=== PATIENT | female | born 1965 | race Caucasian/White ===

== ENCOUNTER 2017-10-22 11:19 | Inpatient (IN) | payer OTHER ==
[2017-10-22] VITALS (15 sets, daily range): BP systolic 106–187; BP diastolic 60–95; PULSE 81–109; RESP 18–20; TEMP 98.3–98.7; O2SAT 95–100
[~2017-10-22] VITALS: Ht 160 cm; Wt 75.1 kg
[~2017-10-22 11:19] MED LIST: ALEV220T14 PO; IBUP1TAB7 PO; ROBA500T PO
[2017-10-22] MEDS ORDERED: ESTR1TAB PO (11:31)
[2017-10-22] MEDS ORDERED: TUMS500C CHEW (11:31)
[2017-10-22] MEDS ORDERED: MAAL10003 CHEW (11:31)
--- NOTE | 2017-10-22 11:41 | PD ---
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 She presents for evaluation of chest pain. Symptoms started this morning at 8 AM spontaneously. She describes it as a burning/pressure pain in the substernal region which has been constant since 8 AM. She reports over the past several months she has been experiencing on a daily basis a substernal chest burning sensation which she attributes to heartburn. She has been using Maalox and Tums and this usually resolves her symptoms. Today was different, more intense, unrelieved with use of Maalox and Tums. Endorses some associated nausea. She denies shortness of breath, diaphoresis, cough or congestion, abdominal pain. She reports that she has been under a lot of stress in regards to her work she is currently quite anxious and tearful. She denies any known history of coronary artery disease. She reports that she had a cardiac catheterization 5 years ago in [place] and she was told that was normal. She reports use of E cigarettes but denies any other tobacco use. Denies any history of diabetes, hypertension, hyperlipidemia. She does not currently use any acid jimmy medications. No other complaints. PFSH Past Medical History Cardiac Catheterization: Yes Diminished Hearing: No GERD: Yes Medical other: Yes (barrets esophagus) ?: Not Menopausal: Yes Past Surgical History Hysterectomy: Yes Other Surgery: Yes (ENDOSCOPE) Social History Alcohol Use: Yes (occassional) Tobacco Use: No (ecig) Substance Use: No Allergies-Medications (Allergen,Severity, Reaction): Coded Allergies: *MDRO Multi-Drug Resistant Organism (Verified Adverse Reaction, Unknown, MRSA, 07/19/17) MRSA (buttock) - 12/08/16 Reported Meds & Prescriptions Reported Meds & Active Scripts Active Ibuprofen 800 Mg Tab 800 Mg PO Q6HR PRN Robaxin (Methocarbamol) 500 Mg Tab 500 Mg PO QID PRN Reported Tums (Calcium Carbonate (Antacid)) 500 Mg Chew 500 Mg CHEW PRN Maalox Advanced Maximum Strength (Calcium Carbonate-Simethicone) 1,000-60 Mg Chew 1 Tab CHEW PRN Estradiol 1 Mg Tab 1 Mg PO DAILY Aleve Arthritis (Naproxen Sodium) 220 Mg Tab 220 Mg PO BID Review of Systems Except as stated in HPI: all other systems reviewed are Neg Physical Exam Narrative GENERAL: Well-developed well-nourished female who is anxious and tearful. She is hypertensive. SKIN: Warm and dry. HEAD: Atraumatic. Normocephalic. EYES: Pupils equal and round. No scleral icterus. No injection or drainage. ENT: No nasal bleeding or discharge. Mucous membranes pink and moist. NECK: Trachea midline. No JVD. CARDIOVASCULAR: Regular rate and rhythm. No murmur appreciated. RESPIRATORY: No accessory muscle use. Clear to auscultation. Breath sounds equal bilaterally. GASTROINTESTINAL: Abdomen soft, non-tender, nondistended. Hepatic and splenic margins not palpable. MUSCULOSKELETAL: No obvious deformities. No clubbing. No cyanosis. No edema. NEUROLOGICAL: Awake and alert. No obvious cranial nerve deficits. Motor grossly within normal limits. Normal speech. PSYCHIATRIC: Appropriate mood and affect; insight and judgment normal. Data Data Last Documented VS Vital Signs Date Time Temp Pulse Resp B/P (MAP) Pulse Ox O2 Delivery O2 Flow Rate FiO2 10/22/17 12:30 100 18 132/74 (93) 98 Room Air 10/22/17 11:21 98.3 Orders Orders Electrocardiogram (10/22/17 ) Electrocardiogram (10/22/17 11:37) Basic Metabolic Panel (Bmp) (10/22/17 11:37) Ckmb (Isoenzyme) Profile (10/22/17 11:37) Complete Blood Count With Diff (10/22/17 11:37) Magnesium (Mg) (10/22/17 11:37) Prothrombin Time / Inr (Pt) (10/22/17 11:37) Act Partial Throm Time (Ptt) (10/22/17 11:37) Troponin I (10/22/17 11:37) Ecg Monitoring (10/22/17 11:37) Bilateral Bp Monitoring (10/22/17 11:37) Iv Access Insert/Monitor (10/22/17 11:37) Oximetry (10/22/17 11:37) Oxygen Administration (10/22/17 11:37) Aspirin Chew (Aspirin Chew) (10/22/17 11:45) Sodium Chloride 0.9% Flush (Ns Flush) (10/22/17 11:45) Nitroglycerin Sl (Nitrostat Sl) (10/22/17 11:45) Chest, Pa & Lat (10/22/17 11:37) Pantoprazole Inj (Protonix Inj) (10/22/17 11:45) Morphine Inj (Morphine Inj) (10/22/17 12:00) Sodium Chlorid 0.9% 500 Ml Inj (Ns 500 M (10/22/17 12:00) Admit Order (Ed Use Only) (10/22/17 13:30) Labs Laboratory Tests Test 10/22/17 11:42 White Blood Count 9.8 TH/MM3 Red Blood Count 4.66 MIL/MM3 Hemoglobin 14.6 GM/DL Hematocrit 43.2 % Mean Corpuscular Volume 92.7 FL Mean Corpuscular Hemoglobin 31.4 PG Mean Corpuscular Hemoglobin Concent 33.9 % Red Cell Distribution Width 14.1 % Platelet Count 246 TH/MM3 Mean Platelet Volume 8.0 FL Neutrophils (%) (Auto) 72.0 % Lymphocytes (%) (Auto) 21.4 % Monocytes (%) (Auto) 5.8 % Eosinophils (%) (Auto) 0.3 % Basophils (%) (Auto) 0.5 % Neutrophils # (Auto) 7.0 TH/MM3 Lymphocytes # (Auto) 2.1 TH/MM3 Monocytes # (Auto) 0.6 TH/MM3 Eosinophils # (Auto) 0.0 TH/MM3 Basophils # (Auto) 0.0 TH/MM3 CBC Comment DIFF FINAL Differential Comment Prothrombin Time 10.0 SEC Prothromb Time International Ratio 1.0 RATIO Activated Partial Thromboplast Time 27.4 SEC Blood Urea Nitrogen 20 MG/DL Creatinine 1.02 MG/DL Random Glucose 111 MG/DL Calcium Level 8.1 MG/DL Magnesium Level 2.0 MG/DL Sodium Level 140 MEQ/L Potassium Level 4.4 MEQ/L Chloride Level 107 MEQ/L Carbon Dioxide Level 23.8 MEQ/L Anion Gap 9 MEQ/L Estimat Glomerular Filtration Rate 57 ML/MIN Total Creatine Kinase 88 U/L Troponin I LESS THAN 0.02 NG/ML MDM Medical Decision Making Medical Screen Exam Complete: Yes Emergency Medical Condition: Yes Medical Record Reviewed: Yes Differential Diagnosis Unstable angina, acute coronary syndrome, GERD, aortic dissection, pulmonary embolism, pneumothorax, pericarditis, myocarditis Narrative Course The patient was placed on ECG monitoring pulse oximetry. A 12 EKG was obtained revealing sinus tachycardia with a rate of 104. Lab work, chest x-ray reassuring. The patient will be admitted to the chest pain center for serial cardiac enzymes and rule out purposes. Diagnosis Primary Impression: Chest pain Admitting Information Admitting Physician Requests: Observation Olu Albright October 22, 2017 11:41
[2017-10-22] MEDS ORDERED: ASPIRIN 81 MG CHEW TAB PO ONE (11:45)
[2017-10-22] MEDS ORDERED: SODIUM CHLORIDE 0.9% FLUSH 10 ML FLUSH IVF PRN (11:45)
[2017-10-22] MEDS ORDERED: PANTOPRAZOLE SODIUM 40 MG VIAL IVP ONE (11:45)
[2017-10-22] MEDS: NITROGLYCERIN 0.4 MG SL 25 TABS/BTL SL SCH ×3 (11:49→11:55)
[2017-10-22] MEDS ORDERED: MORPHINE SULFATE 4 MG/ML INJ IV PUSH ONE (12:00)
[2017-10-22] MEDS ORDERED: SODIUM CHLORID 0.9% 500 ML INJ 500 ML IV ONE (12:00)
[2017-10-22 12:20] LABS: BASOPHIL % 0.5 % (0.0-2.0); EOSINOPHIL % 0.3 % (0.0-4.0); HEMATOCRIT 43.2 % (35.0-46.0); HEMOGLOBIN 14.6 GM/DL (11.6-15.3); LYMPH % 21.4 % (9.0-44.0); LYMPHOCYTE # 2.1 TH/MM3 (1.0-4.8); MEAN CELL VOLUME 92.7 FL (80.0-100.0); MEAN CORPUSCULAR HEMOGLOBIN 31.4 PG (27.0-34.0); MEAN CORPUSCULAR HGB CONC 33.9 % (32.0-36.0); MONO % 5.8 % (0.0-8.0); MONOCYTE # 0.6 TH/MM3 (0-0.9); PLATELET COUNT 246 TH/MM3 (150-450); RED BLOOD COUNT 4.66 MIL/MM3 (4.00-5.30); RED CELL DISTRIBUTION WIDTH 14.1 % (11.6-17.2); WHITE BLOOD COUNT 9.8 TH/MM3 (4.0-11.0)
--- NOTE | 2017-10-22 12:31 | RADRPT ---
EXAM DATE/TIME: 10/22/2017 12:21 [facility] COMPARISON: No previous studies available for comparison. INDICATIONS : Chest pain. MEDICAL HISTORY : None. SURGICAL HISTORY : Hysterectomy. ENCOUNTER: Initial ACUITY: 1 day PAIN SCORE: 10/10 LOCATION: Bilateral chest FINDINGS: PA and lateral views of the chest demonstrate the lungs to be symmetrically aerated without evidence of mass, infiltrate or effusion. The cardiomediastinal contours are unremarkable. Osseous structure s are intact. CONCLUSION: Normal examination for a patient of this age. Paolo Epstein MD on October 22, 2017 at 12:30 Board Certified Radiologist. This report was verified electronically.
[2017-10-22 12:58] LABS: BLOOD UREA NITROGEN 20 MG/DL (7-18); CALCIUM 8.1 MG/DL (8.5-10.1); CREATININE 1.02 MG/DL (0.50-1.00); GLOMERULAR FILTRATION RATE 57 ML/MIN (>89); GLUCOSE,RANDOM 111 MG/DL (74-106); SODIUM (NA) 140 MEQ/L (136-145)
[2017-10-22 12:59] LABS: BICARBONATE 23.8 MEQ/L (21.0-32.0); CHLORIDE 107 MEQ/L (98-107); TROPONIN I LESS THAN 0.02 NG/ML (0.02-0.05)
[2017-10-22] MEDS ORDERED: ACETAMINOPHEN 500 MG CPLT PO PRN (14:30)
--- NOTE | 2017-10-22 15:00 | HHI.HP ---
HPI Primary Care Physician Jeff Price DO Chief Complaint Chest pain History of Present Illness 52-year-old female with history of Laughlin's esophagus presents emergency room for further evaluation of chest pain. Onset 8 AM. Location substernal. Characterized as burning, tightness, and pressure. No radiation of pain. Severe in severity. No radiation of pain. Associated symptoms of nausea and "it hurt to talk." Denies vomiting, dyspnea, or diaphoresis. Took 1/2 bottle of Maalox and 15 Tums without relief, therefore came to ER for further evaluation. Duration constant. Current pain "moderate." Relieving factors included morphine. Reports long standing history of daily ingestion despite multiple medications including Maalox, Tagamet, Zantac, and Tums throughout the day for "at least 2 years." Last EGD "many years ago." Reports cardiac catheterization 5 years ago reported to be completed normal, completed due to same presenting symptoms. Moved from [place] 3 years ago to [place]. Since this time, she has not seen a with GI specialist. (Jenifer Crowell) Review of Systems General: No fatigue,weakness, fever, chills, or recent illness. Has been her general state of health, which includes multiple antacids and aqwy-eys-jetyyqq GERD medications, multiple times throughout the day. HEENT: No MATHIAS, no dysphasia. Reports barium swallow completed many years ago. CV: Continues to have chest discomfort as stated above. RESP: No SOB, cough, or wheeze GI: Nausea resolved. No vomiting or bowel changes. No dysphasia. Occasionally induces vomiting due to feeling food in stuck in mid esophageus area. No sour taste or acid reflex noted in back of throat. "I have the acid reflex without the burning in back of throat." No change in appetite. No unintentional weight loss. No history of peptic ulcers : No dysuria, urgency, frequency EXT: No lower leg edema MS: No discomfort or change in ROM NEURO: No change in memory, dizziness, difficulty with balance, LOC, motor/ sensory deficits PSYCH: Reports "high stress with job and family." Has not mentioned this to her family physician. Reports anxiety, never treated for anxiety stating " I don't want to get hooked on medications." No depression. SKIN: No rashes, no concerning lesions (Jenifer Crowell) Past Family Social History Allergies: Coded Allergies: *MDRO Multi-Drug Resistant Organism (Verified Adverse Reaction, Unknown, MRSA, 07/19/17) MRSA (buttock) - 12/08/16 Past Medical History GERD, Laughlin's esophagus Past Surgical History Hysterectomy Reported Medications Reported Meds & Active Scripts Active Ibuprofen 800 Mg Tab 800 Mg PO Q6HR PRN Robaxin (Methocarbamol) 500 Mg Tab 500 Mg PO QID PRN Reported Tums (Calcium Carbonate (Antacid)) 500 Mg Chew 500 Mg CHEW PRN Maalox Advanced Maximum Strength (Calcium Carbonate-Simethicone) 1,000-60 Mg Chew 1 Tab CHEW PRN Estradiol 1 Mg Tab 1 Mg PO DAILY Aleve Arthritis (Naproxen Sodium) 220 Mg Tab 220 Mg PO BID Active Ordered Medications Current Medications Medications (Trade) Dose Ordered Sig/Melissa Route Start Time Stop Time Status Last Admin (NS Flush) 2 ml UNSCH PRN IVF 10/22/17 11:45 (NS Flush) 2 ml BID IV FLUSH 10/22/17 21:00 (Tylenol) 500 mg Q4H PRN PO 10/22/17 14:30 (Zofran Inj) 4 mg Q6H PRN IV PUSH 10/22/17 14:30 (Nitrostat Sl) 0.4 mg Q5M PRN SL 10/22/17 14:30 (Aspirin) 325 mg DAILY PO 10/23/17 09:00 Family History Noncontributory for early onset cardiovascular disease Social History No known coronary artery disease, hypertension, diabetes, or hyperlipidemia. Former smoker quitting 3 years ago. Currently smoking E cigarettes. Denies any alcohol or illegal drug use. 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 Past cardiac testing Cardiac catheterization 5 years ago while living in [place]. Reported to be completely normal. (Jenifer Crowell) Physical Exam Vital Signs Vital Signs Date Time Temp Pulse Resp B/P (MAP) Pulse Ox O2 Delivery O2 Flow Rate FiO2 10/22/17 14:49 10/22/17 14:21 98 21 10/22/17 14:17 97 18 123/64 (83) 98 Room Air 10/22/17 12:30 100 18 132/74 (93) 98 Room Air 10/22/17 11:57 109 20 106/60 (75) 98 Room Air 10/22/17 11:55 97 18 106/72 (83) 98 Room Air 10/22/17 11:55 18 10/22/17 11:53 103 18 164/93 (116) 98 Room Air 10/22/17 11:52 99 Room Air 10/22/17 11:52 99 Room Air 10/22/17 11:29 107 18 187/95 (125) 100 Room Air 10/22/17 11:25 94 20 100 Room Air 10/22/17 11:21 98.3 98 20 161/90 (113) 100 Physical Exam GENERAL: Alert WN, WD, NAD, pleasant, female who appears mildly anxious HEAD: NC, AT EYES: Sclera clear, conjunctiva without injection, pupils equal and round ENT: Mucous membranes pink and moist NECK: Supple, no masses, trachea midline CV: RRR, without murmur, rub, gallop, no JVD, S1-S2 no S3-S4. Diffuse chest wall tenderness with palpation. RESP: Clear lungs throughout bilateral, no crackles, wheeze, rhonchi, symmetrical chest rise, nonlabored, able to speak in full sentences ABD: Soft, NT, ND, no masses, positive bowel tones EXT: Pulses +2x4, no dependent edema MS: Normal tone x4 extremities, nontender, no obvious deformities, full range of motion NEURO: CN II through CN XII grossly intact, motor strength 5/5, gait WNL PSYCH: A+O x3, flat affect, appropriate speech, mood, insight and judgment SKIN: Normal turgor, normal texture Laboratory Laboratory Tests Test 10/22/17 11:42 White Blood Count 9.8 Red Blood Count 4.66 Hemoglobin 14.6 Hematocrit 43.2 Mean Corpuscular Volume 92.7 Mean Corpuscular Hemoglobin 31.4 Mean Corpuscular Hemoglobin Concent 33.9 Red Cell Distribution Width 14.1 Platelet Count 246 Mean Platelet Volume 8.0 Neutrophils (%) (Auto) 72.0 Lymphocytes (%) (Auto) 21.4 Monocytes (%) (Auto) 5.8 Eosinophils (%) (Auto) 0.3 Basophils (%) (Auto) 0.5 Neutrophils # (Auto) 7.0 Lymphocytes # (Auto) 2.1 Monocytes # (Auto) 0.6 Eosinophils # (Auto) 0.0 Basophils # (Auto) 0.0 CBC Comment DIFF FINAL Differential Comment Prothrombin Time 10.0 Prothromb Time International Ratio 1.0 Activated Partial Thromboplast Time 27.4 Blood Urea Nitrogen 20 Creatinine 1.02 Random Glucose 111 Calcium Level 8.1 Magnesium Level 2.0 Sodium Level 140 Potassium Level 4.4 Chloride Level 107 Carbon Dioxide Level 23.8 Anion Gap 9 Estimat Glomerular Filtration Rate 57 Total Creatine Kinase 88 Troponin I LESS THAN 0.02 (Jenifer Crowell) Result Diagram: 10/22/17 1142 10/22/17 1142 Imaging Last 48 hours Impressions Chest X-Ray 10/22/17 1137 Signed Impressions: Service Date/Time: Sunday, October 22, 2017 12:21 - CONCLUSION: Normal examination for a patient of this age. Paolo Epstein MD Course EKG Normal sinus rhythm, no ST-T segment changes (Jenifer Crowell) Caprini VTE Risk Assessment Caprini VTE Risk Assessment: No/Low Risk (score <= 1) Caprini Risk Assessment Model Point Value = 1 Point Value = 2 Point Value = 3 Point Value = 5 Age 41-60 Minor surgery BMI > 25 kg/m2 Swollen legs Varicose veins or History of unexplained or recurrent spontaneous Oral contraceptives or hormone replacement Sepsis (< 1 month) Serious lung disease, including pneumonia (< 1 month) Abnormal pulmonary function Acute myocardial infarction Congestive heart failure (< 1 month) History of inflammatory bowel disease Medical patient at bed rest Age 61-74 Arthroscopic surgery Major open surgery (> 45 min) Laparoscopic surgery (> 45 min) Malignancy Confined to bed (> 72 hours) Immobilizing plaster cast Central venous access Age >= 75 History of VTE Family history of VTE Factor V Leiden Prothrombin [id number] Lupus anticoagulant Anticardiolipin antibodies Elevated serum homocysteine Heparin-induced thrombocytopenia Other congenital or acquired thrombophilia Stroke (< 1 month) Elective arthroplasty Hip, pelvis, or leg fracture Acute spinal cord injury (< 1 month) Prophylaxis Regimen Total Risk Factor Score Risk Level Prophylaxis Regimen 0-1 Low Early ambulation 2 Moderate Order ONE of the following: *Sequential Compression Device (SCD) *Heparin 5000 units SQ BID 3-4 Higher Order ONE of the following medications: *Heparin 5000 units SQ TID *Enoxaparin/Lovenox 40 mg SQ daily (WT < 150 kg, CrCl > 30 mL/min) *Enoxaparin/Lovenox 30 mg SQ daily (WT < 150 kg, CrCl > 10-29 mL/min) *Enoxaparin/Lovenox 30 mg SQ BID (WT < 150 kg, CrCl > 30 mL/min) AND/OR *Sequential Compression Device (SCD) 5 or more Highest Order ONE of the following medications: *Heparin 5000 units SQ TID (Preferred with Epidurals) *Enoxaparin/Lovenox 40 mg SQ daily (WT < 150 kg, CrCl > 30 mL/min) *Enoxaparin/Lovenox 30 mg SQ daily (WT < 150 kg, CrCl > 10-29 mL/min) *Enoxaparin/Lovenox 30 mg SQ BID (WT < 150 kg, CrCl > 30 mL/min) AND *Sequential Compression Device (SCD) (Jenifer Crowell) Assessment and Plan Assessment and Plan #1 Chest pain-chest pain center. Begin ACS protocol including 3 sets of EKGs and cardiac enzymes. Monitor on telemetry. Will be seen and evaluated by Dr. Jason Guerra. Discomfort suggested a long-standing GI history, however due to risk factors it ruling out cardiac events will be amended at this time. Due to completely normal coronary arteries via cardiac catheterization 5 years ago, discussed possible no further cardiac testing will required. This will be determined after evaluation by bait digger. #2 History of GERD-Protonix 40 mg daily, after ACS ruled out will consult GI #3 Situational stress-discussed in length importance of managing multiple stressors within her life. Education provided on effects of long standing stress on her body. Verbalized understanding and ready to make lifestyle changes in her life to reduce stress. 1700 Notified by RN second troponin 0.97. Requested RN to notify GI as now patient will be admitted to full inpatient status with a cardiology consult. Begin Nitro paste 1" Q6H and metoprolol 25mg BID. (Jenifer Crowell) Assessment and Plan Seen and examined No evidenceof cardiac ischemia. Will consult GI (Jason Guerra MD) Jenifer Crowell October 22, 2017 15:00 Jason Guerra MD October 22, 2017 16:05
[2017-10-22] MEDS ORDERED: LIDOCAINE VISCOUS 2% SOLN 15 ML UDC SWISH-SWAL ONE (15:30)
[2017-10-22] MEDS ORDERED: ALUMINUM/MAGNESIUM/SIMETH 30 ML CUP PO ONE (15:30)
[2017-10-22] MEDS ORDERED: HYDROmorphone HCL PF 2 MG/ML VIAL IV PUSH PRN ×2 (16:15→16:30)
[2017-10-22 16:53] LABS: TROPONIN I 0.97 NG/ML (0.02-0.05)
--- NOTE | 2017-10-22 16:56 | PD.CONS ---
HPI History of Present Illness This is a 52 year old female with hx Dominguez's and GERD who presented to ER with c/o heartburn. She has had heartburn daily for years but pain worsened today. Tums and Maalox usually help but did not today. SHe had nitro in the ER and it did not help. Admits some nausea. Pain was originally substernal, now is in epigastric area. Denies vomiting, blood in stool black tarry stool, weight loss. SHe takes Aleve occasionally. SHe had EGD 8y ago in [place], revealed Dominguez's, H pylori. SHe did treat the h pylori. Never had colonoscopy. SHe cites external stress. (Melonie Shanks) PFSH Past Medical History dominguez's GERD chronic back pain Past Surgical History c section x 2 hysterectomy back surgery appendectomy cholecystectomy (Melonie Shanks) Coded Allergies: *MDRO Multi-Drug Resistant Organism (Verified Adverse Reaction, Unknown, MRSA, 07/19/17) MRSA (buttock) - 12/08/16 Family History colon ca Social History no etoh e - cigarettes no illicit drug use (Melonie Shanks) Review of Systems Constitutional: DENIES: Fever, Weight loss Endocrine: DENIES: Polydipsia Eyes: DENIES: Blurred vision Ears, nose, mouth, throat: DENIES: Hearing loss Respiratory: DENIES: Cough Cardiovascular: DENIES: Chest pain Gastrointestinal: COMPLAINS OF: Abdominal pain, Nausea, DENIES: Black stools, Bloody stools, Vomiting, Hematemesis Genitourinary: DENIES: Hematuria Musculoskeletal: DENIES: Joint pain Integumentary: DENIES: Abnormal pigmentation Hematologic/lymphatic: DENIES: Bruising Immunologic/allergic: DENIES: Eczema Neurologic: DENIES: Abnormal gait Psychiatric: DENIES: Confusion (Melonie Shanks) GI Exam Vitals I&O Vital Signs Date Time Temp Pulse Resp B/P (MAP) Pulse Ox O2 Delivery O2 Flow Rate FiO2 10/22/17 15:44 98.7 85 18 128/80 (96) 97 10/22/17 14:49 10/22/17 14:21 98 21 10/22/17 14:17 97 18 123/64 (83) 98 Room Air 10/22/17 12:30 100 18 132/74 (93) 98 Room Air 10/22/17 11:57 109 20 106/60 (75) 98 Room Air 10/22/17 11:55 97 18 106/72 (83) 98 Room Air 10/22/17 11:55 18 10/22/17 11:53 103 18 164/93 (116) 98 Room Air 10/22/17 11:52 99 Room Air 10/22/17 11:52 99 Room Air 10/22/17 11:29 107 18 187/95 (125) 100 Room Air 10/22/17 11:25 94 20 100 Room Air 10/22/17 11:21 98.3 98 20 161/90 (113) 100 I/O 10/21/17 10/21/17 10/21/17 10/22/17 10/22/17 10/22/17 07:00 15:00 23:00 07:00 15:00 23:00 Intake Total 500 ml Balance 500 ml Intake IV Total 500 ml Imaging Last Impressions Chest X-Ray 10/22/17 1137 Signed Impressions: Service Date/Time: Sunday, October 22, 2017 12:21 - CONCLUSION: Normal examination for a patient of this age. Paolo Epstein MD Laboratory Test 10/22/17 11:42 10/22/17 15:15 White Blood Count 9.8 TH/MM3 Red Blood Count 4.66 MIL/MM3 Hemoglobin 14.6 GM/DL Hematocrit 43.2 % Mean Corpuscular Volume 92.7 FL Mean Corpuscular Hemoglobin 31.4 PG Mean Corpuscular Hemoglobin Concent 33.9 % Red Cell Distribution Width 14.1 % Platelet Count 246 TH/MM3 Mean Platelet Volume 8.0 FL Neutrophils (%) (Auto) 72.0 % Lymphocytes (%) (Auto) 21.4 % Monocytes (%) (Auto) 5.8 % Eosinophils (%) (Auto) 0.3 % Basophils (%) (Auto) 0.5 % Neutrophils # (Auto) 7.0 TH/MM3 Lymphocytes # (Auto) 2.1 TH/MM3 Monocytes # (Auto) 0.6 TH/MM3 Eosinophils # (Auto) 0.0 TH/MM3 Basophils # (Auto) 0.0 TH/MM3 CBC Comment DIFF FINAL Differential Comment Prothrombin Time 10.0 SEC Prothromb Time International Ratio 1.0 RATIO Activated Partial Thromboplast Time 27.4 SEC Blood Urea Nitrogen 20 MG/DL Creatinine 1.02 MG/DL Random Glucose 111 MG/DL Calcium Level 8.1 MG/DL Magnesium Level 2.0 MG/DL Sodium Level 140 MEQ/L Potassium Level 4.4 MEQ/L Chloride Level 107 MEQ/L Carbon Dioxide Level 23.8 MEQ/L Anion Gap 9 MEQ/L Estimat Glomerular Filtration Rate 57 ML/MIN Total Creatine Kinase 88 U/L Troponin I LESS THAN 0.02 NG/ML Physical Examination HEENT: PERRL; normocephalic; atraumatic; no jaundice. CHEST: Chest is clear to auscultation and percussion. CARDIAC: Regular rate and rhythm with no murmur gallop or rubs. ABDOMEN: Soft, nondistended,epigastric TTP; no hepatosplenomegaly; bowel sounds are present in all four quadrants. EXTREMITIES: No clubbing, cyanosis, or edema. SKIN: Normal; no rash; no jaundice. MEDICAL REVIEW SPECIALIST: anxious (Melonie Shanks) Assessment and Plan Plan ASSESSMENT - epigastric pain - gastritis vs esophagitis vs ulcer vs cardiac. cardiology following, recent troponin 0.97. pt has hx Dominguez's, GERD. cites chronic heartburn with recent worsening not relieved by usual meds last EGD 8 y ago found dominguez's. never had colonoscopy PLAN - EGD +/- colonoscopy when cleared by cardiology - BID protonix - DEANDRA - trial carafate - await cardiology f/u - further recs to follow pt seen by myself and Dr Echols and this note is on his behalf (Melonie Shanks) Physician Comments Seen and examined with CHARGING MANIPULATOR, chronic gi symptoms. GI vergara once cleared by cardiology. Continue protonix. Will follow, thank you (Zandra Echols MD) Melonie Shanks October 22, 2017 16:56 Zandra Echols MD October 22, 2017 17:19
[2017-10-22] MEDS: NITROGLYCERIN 0.4 MG SL 25 TABS/BTL SL PRN ×3 (17:02→17:16)
[2017-10-22] MEDS: ONDANSETRON HCL 4 MG/2 ML VIAL IV PUSH PRN (17:10)
[2017-10-22] MEDS: SUCRALFATE 1 GM/10 ML CUP PO SCH ×2 (17:46→22:32)
[2017-10-22] MEDS: NITROGLYCERIN 2% OINT 1 GM PACKET TOPICAL SCH (17:46)
--- NOTE | 2017-10-22 18:21 | PD ---
Data Data Last Documented VS Vital Signs Date Time Temp Pulse Resp B/P (MAP) Pulse Ox O2 Delivery O2 Flow Rate FiO2 10/22/17 12:30 100 18 132/74 (93) 98 Room Air 10/22/17 11:21 98.3 Orders Orders Electrocardiogram (10/22/17 ) Electrocardiogram (10/22/17 11:37) Basic Metabolic Panel (Bmp) (10/22/17 11:37) Ckmb (Isoenzyme) Profile (10/22/17 11:37) Complete Blood Count With Diff (10/22/17 11:37) Magnesium (Mg) (10/22/17 11:37) Prothrombin Time / Inr (Pt) (10/22/17 11:37) Act Partial Throm Time (Ptt) (10/22/17 11:37) Troponin I (10/22/17 11:37) Ecg Monitoring (10/22/17 11:37) Bilateral Bp Monitoring (10/22/17 11:37) Iv Access Insert/Monitor (10/22/17 11:37) Oximetry (10/22/17 11:37) Oxygen Administration (10/22/17 11:37) Aspirin Chew (Aspirin Chew) (10/22/17 11:45) Sodium Chloride 0.9% Flush (Ns Flush) (10/22/17 11:45) Nitroglycerin Sl (Nitrostat Sl) (10/22/17 11:45) Chest, Pa & Lat (10/22/17 11:37) Pantoprazole Inj (Protonix Inj) (10/22/17 11:45) Morphine Inj (Morphine Inj) (10/22/17 12:00) Sodium Chlorid 0.9% 500 Ml Inj (Ns 500 M (10/22/17 12:00) Admit Order (Ed Use Only) (10/22/17 13:30) Labs Laboratory Tests Test 10/22/17 11:42 White Blood Count 9.8 TH/MM3 Red Blood Count 4.66 MIL/MM3 Hemoglobin 14.6 GM/DL Hematocrit 43.2 % Mean Corpuscular Volume 92.7 FL Mean Corpuscular Hemoglobin 31.4 PG Mean Corpuscular Hemoglobin Concent 33.9 % Red Cell Distribution Width 14.1 % Platelet Count 246 TH/MM3 Mean Platelet Volume 8.0 FL Neutrophils (%) (Auto) 72.0 % Lymphocytes (%) (Auto) 21.4 % Monocytes (%) (Auto) 5.8 % Eosinophils (%) (Auto) 0.3 % Basophils (%) (Auto) 0.5 % Neutrophils # (Auto) 7.0 TH/MM3 Lymphocytes # (Auto) 2.1 TH/MM3 Monocytes # (Auto) 0.6 TH/MM3 Eosinophils # (Auto) 0.0 TH/MM3 Basophils # (Auto) 0.0 TH/MM3 CBC Comment DIFF FINAL Differential Comment Prothrombin Time 10.0 SEC Prothromb Time International Ratio 1.0 RATIO Activated Partial Thromboplast Time 27.4 SEC Blood Urea Nitrogen 20 MG/DL Creatinine 1.02 MG/DL Random Glucose 111 MG/DL Calcium Level 8.1 MG/DL Magnesium Level 2.0 MG/DL Sodium Level 140 MEQ/L Potassium Level 4.4 MEQ/L Chloride Level 107 MEQ/L Carbon Dioxide Level 23.8 MEQ/L Anion Gap 9 MEQ/L Estimat Glomerular Filtration Rate 57 ML/MIN Total Creatine Kinase 88 U/L Troponin I LESS THAN 0.02 NG/ML MDM Supervised Visit with AKBAR: Yes Narrative Course The history, exam, and medical decision-making in the associated midlevel provider note were completed with my assistance. I reviewed and agree with the findings presented. I attest that I had a [id number] encounter with the patient on the same day, and personally performed and documented my assessment and findings in the medical record. *My assessment and Findings: This is a 52-year-old female who presents to the emergency department with epigastric and substernal chest pain has been going on for months but did not resolve today after taking Tums and Maalox and was more intense. EKG is nonischemic. Patient will be observed in the chest pain center for serial cardiac enzymes. If reassuring patient can follow-up with outpatient gastroenterology. Diagnosis Primary Impression: Chest pain Ching Scott MD October 22, 2017 18:21
[2017-10-22] MEDS: HYDROmorphone HCL PF 2 MG/ML VIAL IV PUSH PRN ×2 (19:12→23:43)
[2017-10-22 19:25] LABS: TROPONIN I 1.67 NG/ML (0.02-0.05)
[2017-10-22] MEDS ORDERED: HEPARIN SODIUM - IV 10,000 UNITS/10 ML VIAL IV PUSH ONE (19:45)
[2017-10-22] MEDS ORDERED: HEPARIN-D5W 25,000 U/250 ML 250 ML IV PRN (19:45)
[2017-10-22 20:36] LABS: HEMATOCRIT 38.2 % (35.0-46.0); HEMOGLOBIN 12.8 GM/DL (11.6-15.3); MEAN CELL VOLUME 91.8 FL (80.0-100.0); MEAN CORPUSCULAR HEMOGLOBIN 30.7 PG (27.0-34.0); MEAN CORPUSCULAR HGB CONC 33.5 % (32.0-36.0); MEAN PLATELET VOLUME 8.3 FL (7.0-11.0); PLATELET COUNT 211 TH/MM3 (150-450); RED BLOOD COUNT 4.17 MIL/MM3 (4.00-5.30); RED CELL DISTRIBUTION WIDTH 14.1 % (11.6-17.2); WHITE BLOOD COUNT 12.9 TH/MM3 (4.0-11.0)
[2017-10-22] MEDS: SODIUM CHLORIDE 0.9% FLUSH 10 ML FLUSH IV FLUSH SCH (21:00)
[2017-10-22] MEDS: PANTOPRAZOLE SOD 40 MG DELAYED RELEASE TAB PO SCH (22:33)
[2017-10-22] MEDS: METOPROLOL TARTRATE 25 MG TAB PO SCH (22:33)
[2017-10-22] MEDS ORDERED: ALPRAZolam 0.5 MG TAB PO ONE (22:45)
[2017-10-22] MEDS: ATORVASTATIN 80 MG TAB PO SCH (22:49)
[2017-10-23] VITALS (21 sets, daily range): BP systolic 92–129; BP diastolic 56–75; PULSE 69–92; RESP 16–18; TEMP 97.7–99.8; O2SAT 96–98
[2017-10-23] MEDS ORDERED: HEPARIN SODIUM - IV 10,000 UNITS/10 ML VIAL IV PUSH PRN ×2 (01:45)
[2017-10-23] MEDS: HYDROmorphone HCL PF 2 MG/ML VIAL IV PUSH PRN ×5 (04:00→21:44)
[2017-10-23] MEDS ORDERED: ALUMINUM/MAGNESIUM/SIMETH 30 ML CUP PO ONE (05:30)
[2017-10-23] MEDS ORDERED: ALPRAZolam 0.5 MG TAB PO ONE (05:30)
[2017-10-23] MEDS: NITROGLYCERIN 2% OINT 1 GM PACKET TOPICAL SCH ×4 (05:43→17:40)
--- NOTE | 2017-10-23 07:51 | HHI.PR ---
Subjective Remarks F/u NSTEMI/ CP/ abd pain Patient complains of chest pain since current medications does not help however she is on Nitropaste and also Dilaudid by IV. 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 Patient with elevated troponins, non-ST elevation [place] plan for cardiac cath today by Dr. Antonio Objective Vitals Vital Signs Date Time Temp Pulse Resp B/P (MAP) Pulse Ox O2 Delivery O2 Flow Rate FiO2 10/23/17 06:00 78 10/23/17 05:00 76 10/23/17 04:45 116/75 (89) 10/23/17 04:00 75 10/23/17 03:00 69 10/23/17 02:10 74 10/23/17 02:10 98.6 74 16 92/63 (73) 97 10/22/17 23:15 98.5 86 18 106/67 (80) 95 10/22/17 22:03 97 10/22/17 20:34 98.6 92 18 122/67 (85) 95 10/22/17 17:14 98.7 92 18 145/88 (107) 97 10/22/17 16:15 81 10/22/17 15:44 98.7 85 18 128/80 (96) 97 10/22/17 14:49 10/22/17 14:21 98 21 10/22/17 14:17 97 18 123/64 (83) 98 Room Air 10/22/17 12:30 100 18 132/74 (93) 98 Room Air 10/22/17 11:57 109 20 106/60 (75) 98 Room Air 10/22/17 11:55 97 18 106/72 (83) 98 Room Air 10/22/17 11:55 18 10/22/17 11:53 103 18 164/93 (116) 98 Room Air 10/22/17 11:52 99 Room Air 10/22/17 11:52 99 Room Air 10/22/17 11:29 107 18 187/95 (125) 100 Room Air 10/22/17 11:25 94 20 100 Room Air 10/22/17 11:21 98.3 98 20 161/90 (113) 100 I/O 5/7/18 5/7/18 10/22/17 10/23/17 10/23/17 10/23/17 07:00 15:00 23:00 07:00 15:00 23:00 Intake Total 500 ml 240 ml Balance 500 ml 240 ml Intake Oral 240 ml IV Total 500 ml # Bowel Movements 1 Result Diagram: 10/22/17200510/22/17 1142 Imaging Last Impressions Chest X-Ray 10/22/17 1137 Signed Impressions: Service Date/Time: Sunday, October 22, 2017 12:21 - CONCLUSION: Normal examination for a patient of this age. Paolo Epstein MD Objective Remarks GENERAL: Veruy pleasant female, in nad. SKIN: Warm and dry. HEAD: Atraumatic. Normocephalic. EYES: Pupils equal and round. No scleral icterus. No injection or drainage. ENT: No nasal bleeding or discharge. Mucous membranes pink and moist. NECK: Trachea midline. No JVD. CARDIOVASCULAR: Regular rate and rhythm. RESPIRATORY: No accessory muscle use. Clear to auscultation. Breath sounds equal bilaterally. GASTROINTESTINAL: Abdomen soft, non-tender, nondistended. Hepatic and splenic margins not palpable. MUSCULOSKELETAL: Extremities without clubbing, cyanosis, or edema. No obvious deformities. NEUROLOGICAL: Awake and alert. No obvious cranial nerve deficits. Motor grossly within normal limits. Five out of 5 muscle strength in the arms and legs. Normal speech. PSYCHIATRIC: Appropriate mood and affect; insight and judgment normal. A/P Assessment and Plan NSTEMI Elevated troponin trending up EKGs reviewed. Monitor on telemetry. Nitro paste 1" Q6H and metoprolol 25mg BID. Heparin drip Dilaudid IV prn for chest pain Patient with long-standing GI history, however due to risk factors it ruling out cardiac events will be amended at this time. Due to completely normal coronary arteries via cardiac catheterization 5 years ago, discussed possible no further cardiac testing will required. Patient with elevated trops trending up plan for cardiac cath by Dr Antonio History of GERD-Protonix 40 mg daily, consult GI. Patient says she has a h/o Barretts esophagus. Situational stress- advised managing multiple stressors within her life. Education provided on effects of long standing stress on her body. Verbalized understanding and ready to make lifestyle changes in her life to reduce stress. DVT ppx scd, teds, heparin Plan for cardiac cath Funmilayo Aponte MD October 23, 2017 07:51
[2017-10-23] MEDS: SUCRALFATE 1 GM/10 ML CUP PO SCH ×4 (08:42→20:40)
[2017-10-23] MEDS: METOPROLOL TARTRATE 25 MG TAB PO SCH ×2 (08:42→20:40)
[2017-10-23] MEDS: ATORVASTATIN 80 MG TAB PO SCH (08:43)
[2017-10-23] MEDS: ONDANSETRON HCL 4 MG/2 ML VIAL IV PUSH PRN ×2 (08:43→18:55)
[2017-10-23] MEDS: SODIUM CHLORIDE 0.9% FLUSH 10 ML FLUSH IV FLUSH SCH ×2 (08:43→20:40)
[2017-10-23] MEDS: PANTOPRAZOLE SOD 40 MG DELAYED RELEASE TAB PO SCH ×2 (08:43→20:40)
[2017-10-23] MEDS ORDERED: PANTOPRAZOLE SOD 40 MG DELAYED RELEASE TAB PO SCH (09:00)
[2017-10-23] MEDS ORDERED: ASPIRIN 325 MG TAB PO SCH (09:00)
--- NOTE | 2017-10-23 09:35 | MB ---
cc: Fernie Antonio MD DATE: 10/22/2017 HISTORY OF PRESENT ILLNESS: This is a 71-year-old white female with a history of Laughlin's esophagus, presented with substernal chest burning and tightness which started this morning. She has had frequent chest discomfort over the last 2 years and she had EGD 8 years ago, in [place], which showed Laughlin's esophagus. She does not see a GI doctor. Her primary care physician is Dr. Jeff Price. She has had nausea, but no shortness of breath, vomiting, diaphoresis. She has not had any peripheral edema, dizziness or lightheadedness. PAST MEDICAL HISTORY: Positive gastroesophageal reflux disease, Laughlin's esophagus, hysterectomy. No history of hypertension, diabetes mellitus, coronary artery disease or CVA. MEDICATIONS: Tums, Maalox, Estradiol, Aleve, ibuprofen, Robaxin p.r.n. ALLERGIES: NO KNOWN MEDICAL ALLERGIES. SOCIAL HISTORY: The patient does not drink alcohol. She quit smoking cigarettes 3 years ago. She smokes e-cigarettes. 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 She is . FAMILY HISTORY: Negative for heart disease. REVIEW OF SYSTEMS: Otherwise negative. PHYSICAL EXAMINATION: VITAL SIGNS: Blood pressure 145/88, pulse 92 and regular. HEENT: Negative. NECK: 2+ upstrokes, no bruits. LUNGS: Clear. HEART: Regular, with no murmur, gallop or rub. ABDOMEN: Soft. No bruits. EXTREMITIES: Without edema, 2+ distal pulses. NEUROLOGIC: Grossly nonfocal. ECHOCARDIOGRAM: Was reviewed and showed a normal sinus rhythm with normal axis and intervals, right axis, nonspecific T-wave changes. LABORATORY DATA: Hemoglobin 14.6. Potassium 4.4, creatinine 1.0. CK 88, 122 and 116. Troponins less than 0.02, 0.97 and 1.67. DIAGNOSES: 1. Non-ST elevation myocardial infarction. 2. Laughlin's esophagus. 3. Gastroesophageal reflux disease. 4. Smoking. DISPOSITION: Ms. Bennett was rule in for myocardial infarction by enzymes. I recommend to continue IV heparin, aspirin, nitroglycerin and beta jimmy. We will start statin as well. She will be scheduled for cardiac catheterization and coronary intervention if necessary tomorrow. She understands the risks and benefits, and wishes to proceed. MD KARLA Christensen , 08:13 PM , 09:15 PM ELVA
--- NOTE | 2017-10-23 10:52 | EKG ---
Date Performed: 10/23/2017 Time Performed: 04:41:18 PTAGE: 52 years EKG: Sinus rhythm Rightward axis Lateral T wave changes are nonspecific Borderline ECG PREVIOUS TRACING : 10/22/2017 17.08 DOCTOR: Korey Candelaria Interpretating Date/Time 10/23/2017 10:49:18
--- NOTE | 2017-10-23 11:31 | EKG ---
Date Performed: 10/22/2017 Time Performed: 17:08:25 PTAGE: 52 years EKG: Sinus rhythm NORMAL ECG PREVIOUS TRACING : 10/22/2017 15.05 DOCTOR: Korey Candelaria Interpretating Date/Time 10/23/2017 11:29:48
[2017-10-23] MEDS: NITROGLYCERIN 0.4 MG SL 25 TABS/BTL SL PRN ×2 (11:33→11:43)
--- NOTE | 2017-10-23 11:38 | EKG ---
Date Performed: 10/22/2017 Time Performed: 15:05:41 PTAGE: 52 years EKG: Sinus rhythm NONSPECIFIC T-WAVE ABNORMALITY BORDERLINE ECG NO PREVIOUS TRACING DOCTOR: Korey Candelaria Interpretating Date/Time 10/23/2017 11:36:52
--- NOTE | 2017-10-23 14:08 | HHI.GIFU ---
Subjective Remarks Pt complaining of bad chest pain States the Dilaudid only lasts two hours and would like a pill in between Dilaudid dosages Planned for cardiac cath today (Tamera Salazar) Objective Vitals I&O Vital Signs Date Time Temp Pulse Resp B/P (MAP) Pulse Ox O2 Delivery O2 Flow Rate FiO2 10/23/17 13:27 86 10/23/17 13:17 18 10/23/17 12:00 79 10/23/17 11:59 18 10/23/17 11:35 98.9 75 18 111/72 (85) 98 10/23/17 11:35 75 10/23/17 10:00 81 10/23/17 09:58 92 10/23/17 08:03 83 10/23/17 08:03 97.7 83 18 111/69 (83) 96 10/23/17 06:00 78 10/23/17 05:00 76 10/23/17 04:45 116/75 (89) 10/23/17 04:00 75 10/23/17 03:00 69 10/23/17 02:10 74 10/23/17 02:10 98.6 74 16 92/63 (73) 97 10/22/17 23:15 98.5 86 18 106/67 (80) 95 10/22/17 22:03 97 10/22/17 20:34 98.6 92 18 122/67 (85) 95 10/22/17 17:14 98.7 92 18 145/88 (107) 97 10/22/17 16:15 81 10/22/17 15:44 98.7 85 18 128/80 (96) 97 10/22/17 14:49 10/22/17 14:21 98 21 10/22/17 14:17 97 18 123/64 (83) 98 Room Air I/O 10/22/17 10/22/17 10/22/17 10/23/17 10/23/17 10/23/17 07:00 15:00 23:00 07:00 15:00 23:00 Intake Total 500 ml 240 ml Balance 500 ml 240 ml Intake Oral 240 ml IV Total 500 ml # Bowel Movements 1 Laboratory Laboratory Tests Test 10/22/17 15:15 10/22/17 17:50 10/22/17 20:06 10/23/17 04:35 Total Creatine Kinase 122 116 Creatine Kinase MB 7.9 9.6 Troponin I 0.97 1.67 White Blood Count 12.9 Red Blood Count 4.17 Hemoglobin 12.8 Hematocrit 38.2 Mean Corpuscular Volume 91.8 Mean Corpuscular Hemoglobin 30.7 Mean Corpuscular Hemoglobin Concent 33.5 Red Cell Distribution Width 14.1 Platelet Count 211 Mean Platelet Volume 8.3 Prothrombin Time 10.0 Prothromb Time International Ratio 1.0 Activated Partial Thromboplast Time 22.6 35.8 Test 10/23/17 12:42 Activated Partial Thromboplast Time 58.3 Imaging Last Impressions Chest X-Ray 10/22/17 1137 Signed Impressions: Service Date/Time: Sunday, October 22, 2017 12:21 - CONCLUSION: Normal examination for a patient of this age. Paolo Epstein MD Physical Exam HEENT: Normocephalic; atraumatic CHEST: Even/unlabored CARDIAC: RRR ABDOMEN: Soft, nondistended, nontender; bowel sounds active EXTREMITIES: No clubbing, cyanosis, or edema. SKIN: Normal; no rash; no jaundice. MANAGER TERMINAL: No focal deficits; alert and oriented times three. (Tamera Salazar) Assessment and Plan Plan ASSESSMENT - Epigastric/chest pain- History of Laughlin's esophagus and GERD with complaints of chronic heartburn recently not controlled with medication. Last EGD 8 years ago. - Chest pain with elevated troponin- cardiology following and planning on cardiac cath with possible PCI today. Pt remains on heparin gtt PLAN - Carafate - Protonix - At this time, pts main issue is cardiac (troponin trending up) - Our service will sign off, please reconsult when pt is stable for EGD pending she still has pain Pt has been seen and examined by myself and Dr. Echols and this note is written on his behalf (Tamera Salazar) Physician Comments Seen and examined with THOM, undergoing cardiac vergara for acute SD. GI vergara on hold for now. Ideally would wait a few months prior to any elective gi procedures. PPI and carafate. GI will sign off. FU with GI as outpt. Thank you (Zandra Echols MD) Tamera Salazar October 23, 2017 14:08 Zandra Echols MD October 23, 2017 15:38
--- NOTE | 2017-10-23 14:17 | EKG ---
Date Performed: 10/22/2017 Time Performed: 11:34:00 PTAGE: 52 years EKG: SINUS TACHYCARDIA WITH SHORT NE INTERVAL ABNORMAL RHYTHM ECG INTERPRETATION BASED ON A DEFA ULT AGE OF 39 YEARS NO PREVIOUS TRACING DOCTOR: Korey Candelaria Interpretating Date/Time 10/23/2017 14:15:20
[2017-10-23] MEDS ORDERED: MIDAZOLAM HCL 5 MG/5 ML VIAL ONE (15:07)
[2017-10-23] MEDS ORDERED: HEPARIN-NS/PF FLUSH BAG 2,000 ML IV FLUSH ONE (15:07)
[2017-10-23] MEDS ORDERED: MIDAZOLAM HCL 2 MG/2 ML VIAL ONE ×2 (15:55→16:27)
[2017-10-23] MEDS ORDERED: HEPARIN SODIUM - IV 10,000 UNITS/10 ML VIAL ONE (16:05)
[2017-10-23] MEDS ORDERED: LIDOCAINE HCL 1% PF 30 ML VIAL ONE (16:37)
[2017-10-23] MEDS ORDERED: TICAGRELOR 90 MG TAB PO ONE (16:50)
[2017-10-23] MEDS ORDERED: SODIUM CHLOR 0.9% 1000 ML INJ 1,000 ML IV SCH (17:02)
--- NOTE | 2017-10-23 17:09 | CATHPROC ---
wutabout HIS Report Study Information Study Number Admission Scheduled Start Study Start [id number] Oct 22 2017 6:23PM 10/23/2017 Oct 23 2017 3:08PM [place] Service Cardiac Catheterization Admit Source Facility Department Emergency department [facility] - Cable Engineer Physician and Clinical Staff Initial Fernie Knapp Unindentured Apprentice Can Mcknight,ROSALVA Other Wilder RN, Dmitriy Recorder Azalea Akins,WRAPPER SELECTOR TECH2 Scrub Jossie Ordoñez,PROFESSIONAL WRESTLER TECH2 Procedures Performed Procedure Location (Site) Vessel Name Angiogram LV LV Ventricle Coronary Angiograms LCA Left Coronary Coronary Angiograms RCA Right Coronary Drug Eluting Inflatio LAD Prox Left Coronary PTCA LAD Prox Left Coronary Wire insertion Fem Art (right) Femoral Art Equipment Time Pre Kindergarten Teacher Description Size Mfg Part Number Used/Scraped WIRE, BALANCE MIDDLEWEIGHT [id number] 16:11 S[employer] 190CM Used 190CM *[id number] TRANSDUCER, TRUWAVE [id number] 15:52 STACY COLON * Used W/STOCKCOCK *[id number] [id number] *[id number] [id number] *[id number] *[id number] 16:42 DAIG/ST. JAMAAL MEDICAL ANGIOSEAL, FR6 VIP FR 6 Used *[id number] 15:52 Lexity INDUSTRIES PACK, CCL CUSTOM * Used *[id number] 15:52 Lexity PACER PEN, SKIN DUAL W/ RULER * Used *[id number] 16:11 MEDTRONIC BALLOON, 2.0 X 10MM EUPHORA 10MM Used *[id number] BALLOON, 2.75 X 8MM NC [id number] 16:30 MEDTRONIC 8MM Used EUPHORA *[id number] 15:46 MEDTRONIC JL 4.0 DXTERITY CATHETER FR 5 Used *[id number] 16:22 MEDTRONIC STENT, 2.5 15MM CIRILO 2.5 15MM Used *[id number] 16:16 RNDOMN MEDICAL 30 ANSELMO INDEFLATOR Used *[id number] 16:07 RNDOMN MEDICAL SHEATH, FR6.5 PRELUDE 11CM FR 6.5 038ACT Used *7910153 [id number] 15:52 eParachute WIRE, 3MMJ .035 180CM 180CM Used *[id number] PROBE COVER, STERILE [id number] 15:52 MICROTEK MEDICAL * Used ULTRASOUND W/ GEL *[id number] 15:52 NAMIC MANIFOLD, 4 PORT * Used *9365083 [id number] 15:52 NAMIC TUBING, HIGH PRESSURE 48" 48" Used *[id number] 15:52 NYCOMED OMNIPAQUE, 350 MG, 150ML 150ML [id number] Used 15:55 NYCOMED OMNIPAQUE, 350 MG, 50ML 50ML [id number] Used [id number] 15:52 [facility],WARM AIR CCL * Used *[id number] 15:52 TERUMO MEDICAL SHEATH, FR5 TERUMO (10CM) FR 5 Used *[id number] Equipment Model, Serial, Lot Number and Expiration Data Description Model Number Serial Number Lot Number Expiration Date ANGIOSEAL, FR6 VIP [id number] 04-17-2018 BALLOON, 2.0 X 10MM EUPHORA [id number] 05-17-2019 JL 4.0 DXTERITY CATHETER [id number] 03-12-2020 STENT, 2.5 15MM CIRILO [id number] 11-30-2018 History: Allergies Allergy Reaction *MDRO Multi-Drug Resistant MRSA Organism History: Risk Factors Family History of Hypertension Dyslipidemia Previous [place] Previous Heart Failure Premature CAD No No No No No Prior Valve Prior PCI Prior CABG Surgery No No No Cerebrovascular Peripheral Artery Chronic Lung On Dialysis Diabetes Disease Disease Disease No No No No No History: Symptoms/Diagnosis Selection Items Chest pain History: Stress Tests Stress or Imaging Studies Performed No History: Other Disease Selection Items Gerd History: Other Current Smoker Method Quit Packs a Day Years Used Pack Years No Cigarettes 3 Years Ago 1 27 27 Labs Hgb (g/dl) Hct (%) RBC (MIL/MM3) Platelets (thousands) 11.60-17.00 35.00-51.00 4.00-5.90 150.00-450.00 12.8 38.2 4.1 211 Glucose (mg/dl) BUN (mg/dl) Creatinine (mg/dl) BUN:Creatinine (1:x) 74.00-106.00 7.00-18.00 0.50-1.30 10.00-20.00 111 20 1.0 20 Na (meq/l) K (meq/l) Cl (meq/l) CO2 (mmol/L) Ca (mg/dl) 136.00-145.00 3.50-5.10 98.00-107.00 21.00-32.00 8.50-10.10 140 4.4 107 23.8 8.1 PT (sec) PTT (sec) INR (PTT:PT) 9.80-11.60 24.30-30.10 0.90-1.10 10 35.8 1 Troponin I (ng/ml) CPK (u/l) CPK-MB (ng/ML) 0.02-0.05 26.00-308.00 0.50-3.60 1.67 116 9.6 Medication Medication Total Dose (Bolus/Oral) Medication Total Dosage/Unit 1% XYLOCAINE 20 mL FENTANYL 225 mcg HEPARIN 6000 units NTG (IC) 300 mcg VERSED 8 mg Medications (Bolus/Oral) Medication Time Given Dosage/Unit Administered By Reason VERSED 10/23/2017 3:23:16 PM 2 mg Roxanna, Can 2 mg VERSED given in lab by Can Mcknight RN in Left Forearm via Peripheral IV. Ordered by Gisella Antonio. FENTANYL 10/23/2017 3:24:21 PM 50 mcg Roxanna, Can 50 mcg FENTANYL given in lab by Can Mcknight RN in Left Forearm via Peripheral IV. Ordered by Fernie Baldwin. VERSED 10/23/2017 3:28:34 PM 1 mg Roxanna, Can 1 mg VERSED given in lab by Can Mcknight RN in Left Forearm via Peripheral IV. Ordered by Gisella Antonio. FENTANYL 10/23/2017 3:30:40 PM 25 mcg Roxanna, Can 25 mcg FENTANYL given in lab by Can Mcknight RN in Left Forearm via Peripheral IV. Ordered by Fernie Baldwin. VERSED 10/23/2017 3:34:26 PM 1 mg Roxanna, Can 1 mg VERSED given in lab by Can Mcknight RN in Left Forearm via Peripheral IV. Ordered by Gisella Antonio. VERSED 10/23/2017 3:43:08 PM 1 mg Roxanna, Can 1 mg VERSED given in lab by Can Mcknight RN in Left Forearm via Peripheral IV. Ordered by Gisella Antonio. 1% XYLOCAINE 10/23/2017 3:49:21 PM 20 mL Fernie Antonio 20 mL 1% XYLOCAINE given in lab by Fernie Antonio in Right Groin via Subcutaneous. Ordered by Fernie Baldwin. FENTANYL 10/23/2017 3:54:17 PM 25 mcg Roxanna, Can 25 mcg FENTANYL given in lab by Can Mcknight RN in Left Forearm via Peripheral IV. Ordered by Fernie Baldwin. VERSED 10/23/2017 3:58:11 PM 1 mg Roxanna, Can 1 mg VERSED given in lab by Can Mcknight RN in Left Forearm via Peripheral IV. Ordered by Gisella Antonio. FENTANYL 10/23/2017 4:05:21 PM 50 mcg Roxanna, Can 50 mcg FENTANYL given in lab by Can Mcknight RN in Left Forearm via Peripheral IV. Ordered by Fernie Baldwin. HEPARIN 10/23/2017 4:11:40 PM 4000 units Roxanna, Can 4000 units HEPARIN given in lab by Can Mcknight RN in Left Forearm via Peripheral IV. Ordered by Fernie Ferguson. HEPARIN 10/23/2017 4:15:02 PM 1000 units Roxanna, Can 1000 units HEPARIN given in lab by Can Mcknight RN in Left Forearm via Peripheral IV. Ordered by Fernie Ferguson. VERSED 10/23/2017 4:16:08 PM 1 mg Roxanna, Can 1 mg VERSED given in lab by Can Mcknight RN in Left Forearm via Peripheral IV. Ordered by Gisella Antonio. NTG (IC) 10/23/2017 4:19:23 PM 100 mcg Fernie Antonio 100 mcg NTG (IC) given in lab by Fernie Antonio via Intra-coronary to LCA. Ordered by Sree Antonio HEPARIN 10/23/2017 4:26:31 PM 1000 units Roxanna, Can 1000 units HEPARIN given in lab by Can Mcknight RN in Left Forearm via Peripheral IV. Ordered by Fernie Ferguson. NTG (IC) 10/23/2017 4:27:19 PM 200 mcg Fernie Antonio 200 mcg NTG (IC) given in lab by Fernie Antonio via Intra-coronary to LAD. Ordered by Sree Antonio FENTANYL 10/23/2017 4:27:55 PM 25 mcg Roxanna, Can 25 mcg FENTANYL given in lab by Can Mcknight RN in Left Forearm via Peripheral IV. Ordered by Fernie Baldwin. VERSED 10/23/2017 4:29:33 PM 1 mg Roxanna, Can 1 mg VERSED given in lab by Can Mcknight RN in Left Forearm via Peripheral IV. Ordered by Gisella Antonio. FENTANYL 10/23/2017 4:33:35 PM 25 mcg Roxanna, Can 25 mcg FENTANYL given in lab by Can Mcknight RN in Left Forearm via Peripheral IV. Ordered by Fernie Baldwin. FENTANYL 10/23/2017 4:45:54 PM 25 mcg Roxanna, Can 25 mcg FENTANYL given in lab by Can Mcknight RN in Left Forearm via Peripheral IV. Ordered by Fernie Baldwin. Medication (Drip) Medication Time Given Dosage/Unit Concentration/Unit Diluent (ml) Solution IV Solutions 10/23/2017 3:16:19 PM 0 mL (IV) 500 NaCl .9 Patient arrived on IV Solutions in Left Forearm via Peripheral IV. Pump/Drip Flow = 20 ml/hr using Na Cl .9. Initial Case Assessment Cardiovascular HR Rhythm NIBP Chest Pain 87 sr 109/62 8 Circulatory - Right Pulses Posterior Tibial Femoral 2 2 Scale (0,1,2,3,4,d) Circulatory - Left Pulses Posterior Tibial Femoral 2 Scale (0,1,2,3,4,d) Neurological State Oriented to time-place- Alert Moves all extremities person Respiration - General Respiration Rate SpO2 (%) (B/min) 14 99 Final Case Assessment Cardiovascular HR Rhythm NIBP Chest Pain 82 sr 128/87 9 Circulatory - Right Pulses Posterior Tibial Femoral 2 2 Scale (0,1,2,3,4,d) Circulatory - Left Pulses Posterior Tibial Femoral 2 Scale (0,1,2,3,4,d) Neurological State Oriented to time-place- Alert Moves all extremities person Respiration - General Respiration Rate SpO2 (%) (B/min) 20 97 Chronological Log Time Study Chronological Log 15:08:19 Patient arrived via Bed. 15:08:20 Patient Name, D.O.B, / Armband Verified By R.N. 15:08:21 Consent signed by the physician and the patient and verified by the Cable Engineer staff. 15:08: Pre-op and post- op instructions given; patient acknowledges understanding of instructions. 15:08:23 Verbal Stimulation=2 Physical Stimulation=2 Airway=2 Respiration=2 TOTAL=8. (0=absent, 1=li mited, 2=present) 15:08:24 Presedation assessment performed by Cable Engineer RN. 15:08: Patient has been NPO for More than 6Hrs. 15:08: Skin Breakdown-none Vitals capture started with the following parameters, Patient=Adult, Interval=5 min, Initial Pr hjcxni=877 mmHg, 15:11:54 Deflation Rate=5 mmHg, Cuff placed on Left Arm 15:12:32 HR=85 bpm, IVEP=747/62 mmhg, SpO2=99.0 %, Resp=12 B/min, Pain=0, Chidi=10, Triana=2 15:16:16 Reyna Prominences Protected 15:16:18 A # 22 IV was noted in the Forearm (left). Grade = patent 15:16:19 Patient arrived on IV Solutions in Left Forearm via Peripheral IV. Pump/Drip Flow = 20 ml/h r using NaCl .9. 15:16:20 History and physical on the chart or being dictated. Assessment: Initial Case, HR=87 BPM, Rhythm=sr, QDOL=003/62 mmhg, Chest Pain=8 Right Pulses: Post Tib=2, Femoral=2 15:16:21 Left Pulses: Cassius Ped=2, Femoral=2 Neurological: State=Alert, Ox3, GRANDA Respiration: Resp=14 B/min, SpO2=99 % 15:16:23 Reference ECG taken 15:17:25 HR=84 bpm, MEMX=059/64 mmhg, SpO2=98.0 %, Resp=14 B/min 15:20:32 Bilateral groins prepped with 2% chlorhexidine, and draped after a 3 minute waiting time. 15:22:22 HR=83 bpm, ZDRE=735/74 mmhg, SpO2=99.0 %, Resp=13 B/min 15:23:16 2 mg VERSED given in lab by Can Mcknight RN in Left Forearm via Peripheral IV. Ordered by Fernie Antonio. 15:23:41 MD arrived. 15:24:21 50 mcg FENTANYL given in lab by Can Mcknight RN in Left Forearm via Peripheral IV. Ordered by Fernie Antonio. 15:27:27 HR=89 bpm, IWSB=412/71 mmhg, SpO2=98.0 %, Resp=15 B/min 15:28:34 1 mg VERSED given in lab by Can Mcknight RN in Left Forearm via Peripheral IV. Ordered by Fernie Antonio. 15:30:40 25 mcg FENTANYL given in lab by Can Mcknight RN in Left Forearm via Peripheral IV. Ordered by Fernie Antonio. 15:32:28 HR=85 bpm, WYGB=556/60 mmhg, SpO2=98.0 %, Resp=16 B/min 15:34:26 1 mg VERSED given in lab by Can Mcknight RN in Left Forearm via Peripheral IV. Ordered by Fernie Antonio. 15:37:28 HR=85 bpm, NIBP=97/55 mmhg, SpO2=99.0 %, Resp=16 B/min 15:42:29 HR=85 bpm, KKJW=975/54 mmhg, BaX8=391.0 %, Resp=17 B/min 15:43:08 1 mg VERSED given in lab by Can Mcknight RN in Left Forearm via Peripheral IV. Ordered by Fernie Antonio. 15:47:28 HR=86 bpm, NIBP=97/61 mmhg, ViI7=346.0 %, Resp=21 B/min Time Out. Correct patient, correct procedure, correct physician, power injector loaded with con trast with surgical team 15:48:12 present. Time Out Concurred by MD and individual staff in procedure. 15:49:20 Case Start 15:49:21 20 mL 1% XYLOCAINE given in lab by Fernie Antonio in Right Groin via Subcutaneous. Ordered by Fernie Antonio. 15:52:16 Access site was Right Femoral Artery. 15:52:22 A SHEATH, FR5 TERUMO (10CM) FR 5 was advanced into the Fem Art (right) using the Percut[place]o us technique. 15:52:27 HR=82 bpm, BFRJ=903/68 mmhg, GyW7=094.0 %, Resp=13 B/min 15:54:17 25 mcg FENTANYL given in lab by Can Mcknight RN in Left Forearm via Peripheral IV. Ordered by Fernie Antonio. A PIGTAIL ANG. INFINITI CATHETER FR 5 was advanced over a wire. OMNIPAQUE, 350 MG, 50ML 50ML wa s used for 15:54:27 injections. 15:57:05 The LV was injected at 10 cc/sec for a total of 30. OMNIPAQUE, 350 MG, 50ML 50ML used. 15:57:30 HR=87 bpm, UYRE=285/63 mmhg, LqY5=920.0 %, Resp=13 B/min 15:57:38 Pressure channel 1 zeroed. Recorded Pressure: LV, HR=91, Condition=Condition 1 15:57:50 (Left Ventricle) LV 99/6/11 Recorded Pressure: LV, Ao, HR=88, Condition=Condition 1 15:57:58 (Left Ventricle) LV 97/9/13, (Aorta) Ao 92/57/74 15:58:11 1 mg VERSED given in lab by Can Mcknight RN in Left Forearm via Peripheral IV. Ordered by Fernie Antonio. 15:59:07 Catheter was removed A JL 4.0 DXTERITY CATHETER FR 5 was advanced over a wire. OMNIPAQUE, 350 MG, 150ML 150ML was us ed for 15:59:07 injections. 15:59:55 The LCA was injected and visualized at various angles. OMNIPAQUE, 350 MG, 150ML 150ML used . 16:02:35 HR=87 bpm, SWOD=638/63 mmhg, DeF6=273.0 %, Resp=15 B/min 16:03:48 Catheter was removed A AR MOD INFINITI CATHETER FR 5 was advanced over a wire. OMNIPAQUE, 350 MG, 150ML 150ML was us ed for 16:03:49 injections. 16:04:49 The RCA was injected and visualized at various angles. OMNIPAQUE, 350 MG, 150ML 150ML used . 16:05:21 50 mcg FENTANYL given in lab by Can Mcknight RN in Left Forearm via Peripheral IV. Ordered by Fernie Antonio. 16:06:53 Catheter was removed A SHEATH, FR6.5 PRELUDE 11CM FR 6.5 was exchanged in the Fem Art (right). This was necessary in order to 16:07:08 accomodate a larger catheter. 16:07:26 HR=88 bpm, QFWH=425/72 mmhg, FeX6=651.0 %, Resp=14 B/min 16:09:03 Activated Clotting Time Drawn A XB 3.0 GUIDE CATHETER FR 6 was advanced over a wire. OMNIPAQUE, 350 MG, 150ML 150ML was used for 16:09:53 injections. 16:10:42 The LCA was injected and visualized at various angles. OMNIPAQUE, 350 MG, 150ML 150ML used . 16:11:40 4000 units HEPARIN given in lab by Can Mcknight RN in Left Forearm via Peripheral IV. Orde red by Fernie Antonio. 16:12:03 A WIRE, BALANCE MIDDLEWEIGHT 190CM 190CM was inserted via Fem Art (right). 16:12:31 HR=85 bpm, CPJN=030/64 mmhg, GaZ3=277.0 %, Resp=15 B/min 16:13:30 Interventional wire has crossed the lesion A BALLOON, 2.0 X 10MM EUPHORA 10MM was inserted over WIRE, BALANCE MIDDLEWEIGHT 190CM 190CM via the 16:14:04 LAD Prox. 16:15:02 1000 units HEPARIN given in lab by Can Mcknight RN in Left Forearm via Peripheral IV. Orde red by Fernie Antonio. A BALLOON, 2.0 X 10MM EUPHORA 10MM over a WIRE, BALANCE MIDDLEWEIGHT 190CM 190CM in the LAD Pro x was 16:15:25 inflated using a 30 ANSELMO INDEFLATOR at 16 anselmo for 22 sec. 16:16:08 1 mg VERSED given in lab by Can Mcknight RN in Left Forearm via Peripheral IV. Ordered by Fernie Antonio. 16:17:33 Balloon Removed. 16:17:34 HR=86 bpm, FJPS=404/56 mmhg, OwB5=229.0 %, Resp=16 B/min 16:19:23 100 mcg NTG (IC) given in lab by Fernie Antonio via Intra-coronary to LCA. Ordered by Fernie Bravo. 16:20:33 Activated Clotting Time Drawn 16:22:29 HR=89 bpm, UWKZ=907/67 mmhg, VwR2=014.0 %, Resp=14 B/min A STENT, 2.5 15MM CIRILO 2.5 15MM was advanced through a XB 3.0 GUIDE CATHETER FR 6 over a WIRE, BALANCE 16:22:56 MIDDLEWEIGHT 190CM 190CM. 16:23:33 ACT (Normal Range 90-180) = 226 A STENT, 2.5 15MM CIRILO 2.5 15MM was deployed using a 30 ANSELMO INDEFLATOR at 12 atmospheres for 52 seconds in 16:25:41 the LAD Prox. 16:26:31 1000 units HEPARIN given in lab by Can Mcknight RN in Left Forearm via Peripheral IV. Orde red by Fernie Antonio. 16:26:50 Delivery device removed 16:27:19 200 mcg NTG (IC) given in lab by Fernie Antonio via Intra-coronary to LAD. Ordered by Fernie Bravo. 16:27:30 HR=87 bpm, SZNO=683/82 mmhg, SpO2=99.0 %, Resp=15 B/min 16:27:55 25 mcg FENTANYL given in lab by Can Mcknight RN in Left Forearm via Peripheral IV. Ordered by Fernie Antonio. 16:29:33 1 mg VERSED given in lab by Can Mcknight RN in Left Forearm via Peripheral IV. Ordered by Fernie Antonio. A BALLOON, 2.75 X 8MM NC EUPHORA 8MM was inserted over WIRE, BALANCE MIDDLEWEIGHT 190CM 190CM v ia the 16:31:10 LAD Prox. A BALLOON, 2.75 X 8MM NC EUPHORA 8MM over a WIRE, 3MMJ .035 180CM 180CM in the LAD Prox was inf lated using 16:32:32 a 30 ANSELMO INDEFLATOR at 16 anselmo for 22 sec. 16:32:41 HR=84 bpm, GIAI=860/71 mmhg, SpO2=99.0 %, Resp=13 B/min 16:33:35 25 mcg FENTANYL given in lab by Can Mcknight RN in Left Forearm via Peripheral IV. Ordered by Fernie Antonio. A BALLOON, 2.75 X 8MM NC EUPHORA 8MM over a WIRE, 3MMJ .035 180CM 180CM in the LAD Prox was inf lated using 16:33:51 a 30 ANSELMO INDEFLATOR at 24 anselmo for 25 sec. 16:35:58 Balloon Removed. 16:36:05 Case End 16:37:32 HR=86 bpm, BSFZ=398/66 mmhg, SpO2=98.0 %, Resp=13 B/min 16:37:53 An injection in the Fem Art (right) was made through the SHEATH, FR6.5 PRELUDE 11CM FR 6.5. 16:38:42 Activated Clotting Time Drawn 16:42:31 HR=88 bpm, BPAT=653/66 mmhg, SpO2=98.0 %, Resp=14 B/min 16:42:49 Access site prepped with betadine for closure device deployment. 16:45:46 ANGIOSEAL, FR6 VIP FR 6 placement in the Fem Art (right) 16:45:54 25 mcg FENTANYL given in lab by Can Mcknight RN in Left Forearm via Peripheral IV. Ordered by Fernie Antonio. 16:46:46 ACT (Normal Range 90-180) = 357 16:47:32 HR=88 bpm, FJIN=164/66 mmhg, SpO2=95 %, Resp=12 B/min 16:48:11 Sterile dressing applied to site 16:48:12 No case complications noted. 16:48:13 Cine recording checked. 16:52:33 HR=78 bpm, RLJG=859/79 mmhg, Resp=8 B/min 16:57:52 Bedside Report will be given. 16:57:53 Implantable Device card placed in patient's chart. Assessment: Final Case, HR=82 BPM, Rhythm=sr, NBTY=054/87 mmhg, Chest Pain=9 Right Pulses: Post Tib=2, Femoral=2 16:57:55 Left Pulses: Cassius Ped=2, Femoral=2 Neurological: State=Alert, Ox3, GRANDA Respiration: Resp=20 B/min, SpO2=97 % 16:58:13 HR=82 bpm, OFBN=155/87 mmhg, SpO2=97 %, Resp=16 B/min 17:02:47 Vitals capture stopped. 17:04:50 Patient moved to bed 17:05:00 Patient transported to [facility] End Study - Contrast Media Used In Study Contrast Total Opened (mL) Total Used (mL) Total Wasted (mL) Omnipaque 260 260 0 End Study - Maximum Contrast Load Max Contrast Load (mL) 312.5 End Study - Radiation Exposure Fluoro Time (minutes) 5.9 End Study - Sheaths Sheaths Pulled By Sheath Hold Time (min) Jossie Ordoñez End Study - Patient Disposition Complications Transferred To Interventional Outcome No Telemetry Bed successful
--- NOTE | 2017-10-23 17:13 | MR ---
cc: Fernie Antonio MD, Ot[place]ar MD DATE: 10/23/2017 INDICATION: Non-ST elevation myocardial infarction, Class IV angina. PROCEDURE PERFORMED: 1. Retrograde left heart catheterization with left ventriculography and selective coronary angiography. 2. Angioplasty and stenting of the proximal left anterior descending artery. 3. Moderate sedation. ACCESS SITE: Right femoral artery. EQUIPMENT USED: 5 Ethiopian pigtail catheter 4. 5 Ethiopian JL4 and AR modified coronary catheters. XB 3.0 guide, BMW wire, 2.0 x 10 mm balloon for predilatation, 2.5 x 15 mm Gilbert drug-eluting NG stent at 12 atmospheres, distal portion of the stent was postdilated using 2.75 x 8 mm noncompliant balloon at 24 atmospheres. MEDICATIONS: Versed IV, fentanyl IV, heparin IV, nitroglycerin IC, Brilinta 180 mg p.o. CONTRAST: Omnipaque 260 mL COMPLICATIONS: None. ESTIMATED BLOOD LOSS: Less than 10 mL METHOD OF HEMOSTASIS: Angio-Seal closure. RESULTS: A. HEMODYNAMICS: Heart rate 81 beats per minute, left ventricular end-diastolic pressure 9 mmHg, left ventricle 100/9, aorta 100/57/74. B. Left ventricular ejection fraction 45%. Wall motion: mid anterior hypokinesis, no mitral regurgitation. C. CORONARY ANGIOGRAPHY: Left main coronary artery patent, left anterior descending artery has 95% stenosis in the proximal portion. Mid and distal LAD patent, first diagonal patent. Left circumflex artery is patent. OM1 patent. OM2 patent, OM3 patent. Right coronary artery is a dominant vessel which is patent. PDA patent. PLV patent. The stenosis in the proximal LAD was 11 mm long. Pre JEANNETTE flow 2. Post JEANNETTE flow 3. Post-stenosis 0. Post-intervention angiography revealed excellent patency of the stented segment and no evidence of dissection, thrombosis, or distal embolization. DIAGNOSES: 1. Coronary artery disease with severe stenosis of the proximal left anterior descending artery. 2. Mild left ventricular dysfunction consistent with ischemic cardiomyopathy. 3. Successful angioplasty and stenting of the proximal left anterior descending artery. DISPOSITION: Ms. Bennett will be monitored on telemetry after her procedure. We will continue therapy with Brilinta for at least 1 year and aspirin indefinitely. We will also continue aggressive modification of her cardiac risk factors. She was strongly encouraged to quit smoking. MD GLADYS Christensen , 04:53 PM , 05:12 PM ELVA
[2017-10-23 21:40] LABS: AUTOMATED NEUTROPHIL # 6.6 TH/MM3 (1.8-7.7); BASOPHIL % 0.4 % (0.0-2.0); HEMATOCRIT 36.7 % (35.0-46.0); HEMOGLOBIN 12.3 GM/DL (11.6-15.3); LYMPH % 15.9 % (9.0-44.0); LYMPHOCYTE # 1.4 TH/MM3 (1.0-4.8); MEAN CELL VOLUME 92.4 FL (80.0-100.0); MEAN CORPUSCULAR HEMOGLOBIN 30.9 PG (27.0-34.0); MEAN CORPUSCULAR HGB CONC 33.4 % (32.0-36.0); MEAN PLATELET VOLUME 7.7 FL (7.0-11.0); MONO % 8.7 % (0.0-8.0); MONOCYTE # 0.8 TH/MM3 (0-0.9); PLATELET COUNT 193 TH/MM3 (150-450); RED BLOOD COUNT 3.97 MIL/MM3 (4.00-5.30); RED CELL DISTRIBUTION WIDTH 13.9 % (11.6-17.2); WHITE BLOOD COUNT 8.8 TH/MM3 (4.0-11.0)
[2017-10-24] VITALS (17 sets, daily range): BP systolic 100–120; BP diastolic 59–72; PULSE 66–88; RESP 16–18; TEMP 98.4–98.7; O2SAT 96–98
[2017-10-24] MEDS: HYDROmorphone HCL PF 2 MG/ML VIAL IV PUSH PRN ×4 (02:27→15:04)
[2017-10-24] MEDS: NITROGLYCERIN 2% OINT 1 GM PACKET TOPICAL SCH ×3 (06:00→10:57)
[2017-10-24] MEDS ORDERED: IOHEXOL 350 MG/ML 50 ML BTL (for Cath Lab) OTHER ONE (07:20)
[2017-10-24] MEDS ORDERED: IOHEXOL 350 MG/ML 100 ML BTL (for Cath Lab) OTHER ONE (07:20)
--- NOTE | 2017-10-24 07:39 | HHI.PR ---
Subjective Remarks Follow up NSTEMI/ CP/ abd pain/ GERD/Barretts esophagus Says she has less chest pain. However still with epigastric pain. She is able to eat. No nausea vomiting no diarrhea constipation. Cleared by cardiology and GI for discharge to follow-up as outpatient. Objective Vitals Vital Signs Date Time Temp Pulse Resp B/P (MAP) Pulse Ox O2 Delivery O2 Flow Rate FiO2 10/24/17 06:00 77 10/24/17 05:00 76 10/24/17 04:00 75 10/24/17 03:30 98.7 75 16 101/60 (74) 96 10/24/17 03:00 75 10/24/17 02:00 78 10/24/17 01:00 80 10/24/17 00:00 79 10/23/17 23:00 89 10/23/17 23:00 99.1 83 16 116/56 (76) 98 10/23/17 22:00 84 10/23/17 21:22 98 10/23/17 21:00 86 10/23/17 20:00 88 10/23/17 20:00 99.8 82 16 129/60 (83) 97 10/23/17 19:00 82 10/23/17 18:25 82 10/23/17 18:18 18 10/23/17 17:25 82 10/23/17 14:19 81 10/23/17 13:27 86 10/23/17 12:00 79 10/23/17 11:59 18 10/23/17 11:35 98.9 75 18 111/72 (85) 98 10/23/17 11:35 75 10/23/17 10:00 81 10/23/17 09:58 92 10/23/17 08:03 83 10/23/17 08:03 97.7 83 18 111/69 (83) 96 I/O 10/23/17 10/23/17 10/23/17 10/24/17 10/24/17 10/24/17 07:00 15:00 23:00 07:00 15:00 23:00 Intake Total 240 ml 480 ml 600 ml Output Total 650 ml 2000 ml Balance 240 ml -170 ml -1400 ml Intake Oral 240 ml 480 ml 600 ml Output Urine Total 650 ml 2000 ml # Bowel Movements 1 0 Result Diagram: 10/23/17212018 1142 Imaging Last Impressions Chest X-Ray 10/22/17 1137 Signed Impressions: Service Date/Time: Sunday, October 22, 2017 12:21 - CONCLUSION: Normal examination for a patient of this age. Paolo Epstein MD Objective Remarks GENERAL: [place]ina [place] female, in nad. SKIN: Warm and dry. HEAD: Atraumatic. Normocephalic. EYES: Pupils equal and round. No scleral icterus. No injection or drainage. ENT: No nasal bleeding or discharge. Mucous membranes pink and moist. NECK: Trachea midline. No JVD. CARDIOVASCULAR: Regular rate and rhythm. RESPIRATORY: No accessory muscle use. Clear to auscultation. Breath sounds equal bilaterally. GASTROINTESTINAL: Abdomen soft, non-tender, nondistended. Hepatic and splenic margins not palpable. MUSCULOSKELETAL: Extremities without clubbing, cyanosis, or edema. No obvious deformities. NEUROLOGICAL: Awake and alert. No obvious cranial nerve deficits. Motor grossly within normal limits. Five out of 5 muscle strength in the arms and legs. Normal speech. PSYCHIATRIC: Appropriate mood and affect; insight and judgment normal. A/P Assessment and Plan NSTEMI EKGs reviewed. Monitor on telemetry. Nitro paste 1" Q6H and metoprolol 25mg BID. Heparin drip Dilaudid IV prn for chest pain Patient with long-standing GI history, however due to risk factors it ruling out cardiac events will be amended at this time. Due to completely normal coronary arteries via cardiac catheterization 5 years ago, discussed possible no further cardiac testing will required. Patient with elevated trops trending s/p cardiac cath with PCI by Dr Antonio.: Coronary artery disease with severe stenosis of the proximal left anterior descending artery. Mild left renal dysfunction consistent with ischemic cardiomyopathy. Successful angioplasty and stenting of the proximal left anterior descending artery. Continue therapy with Brilinta for at least 1 year and aspirin indefinitely. Aggressive modification of her cardiac risk factors. She was strongly encouraged to quit smoking. Discussed with Dr Antonio. Patient will need further GI work up however she has to be on anticoagulation for at least 1 year. History of GERD-/Barretts esophagus. Protonix 40 mg daily, consult GI. Patient says she has a h/o Barretts esophagus. Situational stress- advised managing multiple stressors within her life. Education provided on effects of long standing stress on her body. Verbalized understanding and ready to make lifestyle changes in her life to reduce stress. DVT ppx scd, teds, heparin DC plan: S/p cardiac cath with intervention Patient needs GI eval with EGD/colonoscopy however patient can't be off anticoagulants for a year now. Discharge home in stable condition to follow up as OP with PCP and consultants GI and cardiology Funmilayo Aponte MD October 24, 2017 07:39
[2017-10-24] MEDS: ATORVASTATIN 80 MG TAB PO SCH (08:19)
[2017-10-24] MEDS: METOPROLOL TARTRATE 25 MG TAB PO SCH (08:19)
[2017-10-24] MEDS: PANTOPRAZOLE SOD 40 MG DELAYED RELEASE TAB PO SCH (08:19)
[2017-10-24] MEDS: ONDANSETRON HCL 4 MG/2 ML VIAL IV PUSH PRN ×2 (08:21→16:13)
[2017-10-24] MEDS: SUCRALFATE 1 GM/10 ML CUP PO SCH ×2 (08:23→10:56)
[2017-10-24] MEDS: SODIUM CHLORIDE 0.9% FLUSH 10 ML FLUSH IV FLUSH SCH (08:23)
[2017-10-24 08:33] LABS: AUTOMATED NEUTROPHIL # 4.8 TH/MM3 (1.8-7.7); BASOPHIL % 0.6 % (0.0-2.0); EOSINOPHIL % 0.3 % (0.0-4.0); HEMATOCRIT 34.6 % (35.0-46.0); HEMOGLOBIN 11.6 GM/DL (11.6-15.3); LYMPH % 21.8 % (9.0-44.0); LYMPHOCYTE # 1.6 TH/MM3 (1.0-4.8); MEAN CELL VOLUME 91.9 FL (80.0-100.0); MEAN CORPUSCULAR HEMOGLOBIN 30.9 PG (27.0-34.0); MEAN CORPUSCULAR HGB CONC 33.6 % (32.0-36.0); MEAN PLATELET VOLUME 7.7 FL (7.0-11.0); MONO % 9.9 % (0.0-8.0); MONOCYTE # 0.7 TH/MM3 (0-0.9); NEUT % 67.4 % (16.0-70.0); PLATELET COUNT 184 TH/MM3 (150-450); RED BLOOD COUNT 3.76 MIL/MM3 (4.00-5.30); WHITE BLOOD COUNT 7.2 TH/MM3 (4.0-11.0)
[2017-10-24 08:57] LABS: BICARBONATE 22.8 MEQ/L (21.0-32.0); CALCIUM 8.1 MG/DL (8.5-10.1); CREATININE 0.68 MG/DL (0.50-1.00)
[2017-10-24 09:00] LABS: CHOLESTEROL/ HDL RATIO 1.87 RATIO; HDL CHOLESTEROL 58.8 MG/DL (40.0-60.0)
[2017-10-24] MEDS ORDERED: ASPIRIN 81 MG CHEW TAB PO SCH (09:00)
[2017-10-24] MEDS ORDERED: TICAGRELOR 90 MG TAB PO SCH (09:00)
--- NOTE | 2017-10-24 09:10 | EKG ---
Date Performed: 10/24/2017 Time Performed: 06:40:30 PTAGE: 52 years EKG: Sinus rhythm Rightward axis Inferior ST elevation, possible early repolarization Ant/septal and lateral T wave ch anges suggest myocardial infarct Abnormal ECG PREVIOUS TRACING : 10/23/2017 17.53 DOCTOR: Korey Candelaria Interpretating Date/Time 10/24/2017 09:09:16
--- NOTE | 2017-10-24 09:24 | EKG ---
Date Performed: 10/23/2017 Time Performed: 17:53:56 PTAGE: 52 years EKG: Sinus rhythm Inferior ST elevation suggests early repolarization Lateral T wave changes may be due to myocardial ischemia Abnormal ECG PREVIOUS TRACING : 10/23/2017 04.41 DOCTOR: Korey Candelaria Interpretating Date/Time 10/24/2017 09:17:18
--- NOTE | 2017-10-24 14:28 | PD.CARD.PN ---
Subjective Subjective Remarks Still c/o epigastric pain, no angina or CHF symptoms, c/o back pain as well Objective Medications Current Medications Medications (Trade) Dose Ordered Sig/Melissa Route Start Time Stop Time Status Last Admin (NS Flush) 2 ml UNSCH PRN IVF 10/22/17 11:45 (NS Flush) 2 ml BID IV FLUSH 10/22/17 21:00 10/24/17 08:23 (Tylenol) 500 mg Q4H PRN PO 10/22/17 14:30 10/22/17 20:19 (Zofran Inj) 4 mg Q6H PRN IV PUSH 10/22/17 14:30 10/24/17 08:21 (Nitrostat Sl) 0.4 mg Q5M PRN SL 10/22/17 14:30 10/23/17 11:43 (Protonix) 40 mg BID PO 10/22/17 21:00 10/24/17 08:19 (Carafate Liq) 1 gm ACHS PO 10/22/17 17:00 10/24/17 10:56 (Nitroglycerin 2% Oint) 1 inch Q6HR TOPICAL 10/22/17 18:00 10/23/17 17:40 (Lopressor) 25 mg Q12HR PO 10/22/17 21:00 10/24/17 08:19 (Dilaudid Pf Inj) 2 mg Q4H PRN IV PUSH 10/22/17 17:45 10/24/17 10:57 (Lipitor) 80 mg DAILY PO 10/22/17 21:00 10/24/17 08:19 (Aspirin Chew) 81 mg DAILY PO 10/24/17 09:00 10/24/17 08:19 (Brilinta) 90 mg BID PO 10/24/17 09:00 10/24/17 08:19 Vital Signs / I&O Vital Signs Date Time Temp Pulse Resp B/P (MAP) Pulse Ox O2 Delivery O2 Flow Rate FiO2 10/24/17 13:00 68 10/24/17 12:00 66 10/24/17 11:00 78 10/24/17 11:00 98.4 68 18 100/68 (79) 97 10/24/17 10:00 76 10/24/17 09:00 80 10/24/17 08:00 98.6 68 18 108/59 (75) 96 10/24/17 08:00 72 10/24/17 07:00 88 10/24/17 06:00 77 10/24/17 05:00 76 10/24/17 04:00 75 10/24/17 03:30 98.7 75 16 101/60 (74) 96 10/24/17 03:00 75 10/24/17 02:00 78 10/24/17 01:00 80 10/24/17 00:00 79 10/23/17 23:00 89 10/23/17 23:00 99.1 83 16 116/56 (76) 98 10/23/17 22:00 84 10/23/17 21:22 98 10/23/17 21:00 86 10/23/17 20:00 88 10/23/17 20:00 99.8 82 16 129/60 (83) 97 10/23/17 19:00 82 10/23/17 18:25 82 10/23/17 18:18 18 10/23/17 17:25 82 I/O 10/23/17 10/23/17 10/23/17 10/24/17 10/24/17 10/24/17 07:00 15:00 23:00 07:00 15:00 23:00 Intake Total 240 ml 480 ml 600 ml Output Total 650 ml 2000 ml Balance 240 ml -170 ml -1400 ml Intake Oral 240 ml 480 ml 600 ml Output Urine Total 650 ml 2000 ml # Bowel Movements 1 0 Laboratory Laboratory Tests Test 10/23/17 21:21 10/24/17 08:25 White Blood Count 8.8 TH/MM3 7.2 TH/MM3 Red Blood Count 3.97 MIL/MM3 3.76 MIL/MM3 Hemoglobin 12.3 GM/DL 11.6 GM/DL Hematocrit 36.7 % 34.6 % Mean Corpuscular Volume 92.4 FL 91.9 FL Mean Corpuscular Hemoglobin 30.9 PG 30.9 PG Mean Corpuscular Hemoglobin Concent 33.4 % 33.6 % Red Cell Distribution Width 13.9 % 14.0 % Platelet Count 193 TH/MM3 184 TH/MM3 Mean Platelet Volume 7.7 FL 7.7 FL Neutrophils (%) (Auto) 75.0 % 67.4 % Lymphocytes (%) (Auto) 15.9 % 21.8 % Monocytes (%) (Auto) 8.7 % 9.9 % Eosinophils (%) (Auto) 0.0 % 0.3 % Basophils (%) (Auto) 0.4 % 0.6 % Neutrophils # (Auto) 6.6 TH/MM3 4.8 TH/MM3 Lymphocytes # (Auto) 1.4 TH/MM3 1.6 TH/MM3 Monocytes # (Auto) 0.8 TH/MM3 0.7 TH/MM3 Eosinophils # (Auto) 0.0 TH/MM3 0.0 TH/MM3 Basophils # (Auto) 0.0 TH/MM3 0.0 TH/MM3 CBC Comment DIFF FINAL DIFF FINAL Differential Comment Activated Partial Thromboplast Time 33.1 SEC Blood Urea Nitrogen 11 MG/DL Creatinine 0.68 MG/DL Random Glucose 89 MG/DL Calcium Level 8.1 MG/DL Sodium Level 140 MEQ/L Potassium Level 3.9 MEQ/L Chloride Level 109 MEQ/L Carbon Dioxide Level 22.8 MEQ/L Anion Gap 8 MEQ/L Estimat Glomerular Filtration Rate 91 ML/MIN Total Creatine Kinase 63 U/L Triglycerides Level 87 MG/DL Cholesterol Level 110 MG/DL LDL Cholesterol 34 MG/DL HDL Cholesterol 58.8 MG/DL Cholesterol/HDL Ratio 1.87 RATIO Imaging GENERAL: In NAD. SKIN: Warm and dry. HEAD: Normocephalic. EYES: No scleral icterus. No injection or drainage. NECK: Supple, trachea midline. No JVD or lymphadenopathy. CARDIOVASCULAR: Regular rate and rhythm without murmurs, gallops, or rubs. RESPIRATORY: Breath sounds equal bilaterally. No accessory muscle use. GASTROINTESTINAL: Abdomen soft, non-tender, nondistended. MUSCULOSKELETAL: No cyanosis, or edema. Groin stable. Assessment and Plan Problem List: (1) NSTEMI (non-ST elevated myocardial infarction) ICD Codes: I21.4 - Non-ST elevation (NSTEMI) myocardial infarction (2) CAD (coronary artery disease) ICD Codes: I25.10 - Atherosclerotic heart disease of [place] coronary artery without angina pectoris (3) Stented coronary artery ICD Codes: Z95.5 - Presence of coronary angioplasty implant and graft (4) Laughlin's esophagus ICD Codes: K22.70 - Laughlin's esophagus without dysplasia Assessment and Plan Cath showed severe prox LAD stenosis and mild LV dysfunction. LAD stented using a EMILIA with a good result. Pt still c/o epigastric pain, recommend GI eval and EGD. Pt cleared for EGD, but platelet inhibitors cannot be held due to recent stent. Continue Brilinta, baby ASA, beta jimmy and statin. Increase activity, PT. Fernie Antonio MD October 24, 2017 14:28
[2017-10-24] MEDS ORDERED: METO25TA3 PO (14:47)
[2017-10-24] MEDS ORDERED: SUCR1S PO (14:47)
[2017-10-24] MEDS ORDERED: PANT40TA3 PO (14:47)
[2017-10-24] MEDS ORDERED: BRIL90TA PO (14:47)
[2017-10-24] MEDS ORDERED: ATOR80TA45 PO (14:47)
[2017-10-24] MEDS ORDERED: ASPI81 PO (14:47)
[2017-10-24] MEDS ORDERED: NITR0.4S SL (14:47)
--- NOTE | 2017-10-24 14:48 | HHI.DS ---
Discharge Summary Admission Date October 22, 2017 at 18:23 Discharge Date: October 24, 2017 Admitting Diagnosis Chest pain (1) NSTEMI (non-ST elevated myocardial infarction) ICD Code: I21.4 - Non-ST elevation (NSTEMI) myocardial infarction (2) Stented coronary artery ICD Code: Z95.5 - Presence of coronary angioplasty implant and graft (3) Chest pain ICD Code: R07.9 - Chest pain, unspecified Status: Acute (4) CAD (coronary artery disease) ICD Code: I25.10 - Atherosclerotic heart disease of [place] coronary artery without angina pectoris (5) Laughlin's esophagus ICD Code: K22.70 - Laughlin's esophagus without dysplasia (6) GERD (gastroesophageal reflux disease) ICD Code: K21.9 - Gastro-esophageal reflux disease without esophagitis Procedures cardiac cath with stented coronary artery Brief History - From Admission 52-year-old female with history of Laughlin's esophagus presents emergency room for further evaluation of chest pain. Onset 8 AM. Location substernal. Characterized as burning, tightness, and pressure. No radiation of pain. Severe in severity. No radiation of pain. Associated symptoms of nausea and "it hurt to talk." Denies vomiting, dyspnea, or diaphoresis. Took 1/2 bottle of Maalox and 15 Tums without relief, therefore came to ER for further evaluation. Duration constant. Current pain "moderate." Relieving factors included morphine. Reports long standing history of daily ingestion despite multiple medications including Maalox, Tagamet, Zantac, and Tums throughout the day for "at least 2 years." Last EGD "many years ago." Reports cardiac catheterization 5 years ago reported to be completed normal, completed due to same presenting symptoms. Moved from [place] 3 years ago to [place]. Since this time, she has not seen a with GI specialist. CBC/BMP: 10/24/17 0825 10/24/17 0825 Significant Findings Laboratory Tests Test 10/22/17 11:42 10/22/17 15:15 10/22/17 17:50 10/22/17 20:06 Neutrophils (%) (Auto) 72.0 % (16.0-70.0) Blood Urea Nitrogen 20 MG/DL (7-18) Creatinine 1.02 MG/DL (0.50-1.00) Random Glucose 111 MG/DL (74-106) Calcium Level 8.1 MG/DL (8.5-10.1) Estimat Glomerular Filtration Rate 57 ML/MIN (>89) Troponin I LESS THAN 0.02 NG/ML 0.97 NG/ML (0.02-0.05) 1.67 NG/ML (0.02-0.05) Creatine Kinase MB 7.9 NG/ML (0.5-3.6) 9.6 NG/ML (0.5-3.6) White Blood Count 12.9 TH/MM3 (4.0-11.0) Activated Partial Thromboplast Time 22.6 SEC (24.3-30.1) Test 10/23/17 04:35 10/23/17 12:42 10/23/17 21:21 10/24/17 08:25 Activated Partial Thromboplast Time 35.8 SEC (24.3-30.1) 58.3 SEC (24.3-30.1) 33.1 SEC (24.3-30.1) Red Blood Count 3.97 MIL/MM3 (4.00-5.30) 3.76 MIL/MM3 (4.00-5.30) Neutrophils (%) (Auto) 75.0 % (16.0-70.0) Monocytes (%) (Auto) 8.7 % (0.0-8.0) 9.9 % (0.0-8.0) Hematocrit 34.6 % (35.0-46.0) Calcium Level 8.1 MG/DL (8.5-10.1) Chloride Level 109 MEQ/L (98-107) Cholesterol Level 110 MG/DL (120-200) Imaging Last Impressions Chest X-Ray 10/22/17 1137 Signed Impressions: Service Date/Time: Sunday, October 22, 2017 12:21 - CONCLUSION: Normal examination for a patient of this age. Paolo Epstein MD PE at Discharge GENERAL: Veruy pleasant female, in nad. SKIN: Warm and dry. HEAD: Atraumatic. Normocephalic. EYES: Pupils equal and round. No scleral icterus. No injection or drainage. ENT: No nasal bleeding or discharge. Mucous membranes pink and moist. NECK: Trachea midline. No JVD. CARDIOVASCULAR: Regular rate and rhythm. RESPIRATORY: No accessory muscle use. Clear to auscultation. Breath sounds equal bilaterally. GASTROINTESTINAL: Abdomen soft, non-tender, nondistended. Hepatic and splenic margins not palpable. MUSCULOSKELETAL: Extremities without clubbing, cyanosis, or edema. No obvious deformities. NEUROLOGICAL: Awake and alert. No obvious cranial nerve deficits. Motor grossly within normal limits. Five out of 5 muscle strength in the arms and legs. Normal speech. PSYCHIATRIC: Appropriate mood and affect; insight and judgment normal. Hospital Course NSTEMI EKGs reviewed. Monitor on telemetry. Nitro paste 1" Q6H and metoprolol 25mg BID. Heparin drip Dilaudid IV prn for chest pain Patient with long-standing GI history, however due to risk factors it ruling out cardiac events will be amended at this time. Due to completely normal coronary arteries via cardiac catheterization 5 years ago, discussed possible no further cardiac testing will required. Patient with elevated trops trending s/p cardiac cath with PCI by Dr Antonio.: Coronary artery disease with severe stenosis of the proximal left anterior descending artery. Mild left renal dysfunction consistent with ischemic cardiomyopathy. Successful angioplasty and stenting of the proximal left anterior descending artery. Continue therapy with Brilinta for at least 1 year and aspirin indefinitely. Aggressive modification of her cardiac risk factors. She was strongly encouraged to quit smoking. Discussed with Dr Antonio. Patient will need further GI work up however she has to be on anticoagulation for at least 1 year. History of GERD-/Barretts esophagus. Protonix 40 mg daily, consult GI. Patient says she has a h/o Barretts esophagus. Situational stress- advised managing multiple stressors within her life. Education provided on effects of long standing stress on her body. Verbalized understanding and ready to make lifestyle changes in her life to reduce stress. DVT ppx scd, teds, heparin DC plan: S/p cardiac cath with intervention Patient needs GI eval with EGD/colonoscopy however patient can't be off anticoagulants for a year now. Discharge home in stable condition to follow up as OP with PCP and consultants GI and cardiology Pt Condition on Discharge: Stable Discharge Disposition: Discharge Home Discharge Time: > 30 minutes Discharge Instructions DIET: Follow Instructions for: Heart Healthy Diet Activities you can perform: Regular-No Restrictions Follow up Referrals: Cardiology - 1 Week Gastroenterology - 1 Week PCP Follow-up - 2-3 Days New Medications: Hydrocodone-Acetaminophen ([place]) 5 Mg-325 Mg Tab 1 TAB PO Q6H PRN for PAIN, #15 TAB 0 Refills Aspirin (Tgt Aspirin) 81 Mg Chw 81 MG PO DAILY for Blood Clot Prevention, #30 EA Atorvastatin (Atorvastatin) 80 Mg Tab 80 MG PO DAILY for Cholesterol Management, #30 TAB Metoprolol Tartrate (Metoprolol Tartrate) 25 Mg Tab 25 MG PO Q12HR for Blood Pressure Management, #60 TAB Nitroglycerin SL (Nitrostat SL) 0.4 Mg Subl 0.4 MG SL Q5M PRN for CHEST PAIN, #30 TAB Pantoprazole (Pantoprazole) 40 Mg Tab 40 MG PO BID for GERD, #60 TAB Sucralfate Liq (Sucralfate Liq) 1 Gram/10 Ml Nikki 1 GM PO ACHS for GERD for 30 Days, PACKET Ticagrelor (Brilinta) 90 Mg Tab 90 MG PO BID for Blood Clot Prevention, #60 TAB Continued Medications: Calcium Carbonate (Antacid) (Tums) 500 Mg Chew 500 MG CHEW PRN for HEARTBURN, TAB 0 Refills Calcium Carbonate-Simethicone (Maalox Advanced Maximum Strength) 1,000-60 Mg Chew 1 TAB CHEW PRN for INDIGESTION OR UPSET STOMACH, TAB 0 Refills Estradiol (Estradiol) 1 Mg Tab 1 MG PO DAILY for Estrogen Supplements, #30 TAB 0 Refills Methocarbamol (Robaxin) 500 Mg Tab 500 MG PO QID PRN for MUSCLE SPASM, #30 TAB 0 Refills Discontinued Medications: Ibuprofen (Ibuprofen) 800 Mg Tab 800 MG PO Q6HR PRN for PAIN, #30 TAB 0 Refills Naproxen Sodium (Aleve Arthritis) 220 Mg Tab 220 MG PO BID, TAB Funmilayo Aponte MD October 24, 2017 14:48
[2017-10-24] MEDS ORDERED: NORC5TAB PO (14:50)
== END 2017-10-24 18:15 | disposition home or self-care (01) | DRG 247 ==
LOC: NEPE 11:19 → NEDA 13:32 → NEPFCDU 15:09 → OBSVTOIN 18:23 → HCIS 10-23 02:05
PROVIDERS: ADMIT Hospitalist; ATTEND Hospitalist
PROC: 027034Z Dilation of Coronary Artery, One Artery with Drug-eluting Intraluminal Device, Percutaneous Approach (ICD-10-PCS; principal; 2017-10-23)
PROC: 4A023N7 Measurement of Cardiac Sampling and Pressure, Left Heart, Percutaneous Approach (ICD-10-PCS; 2017-10-23)
PROC: B2111ZZ Fluoroscopy of Multiple Coronary Arteries using Low Osmolar Contrast (ICD-10-PCS; 2017-10-23)
PROC: B2151ZZ Fluoroscopy of Left Heart using Low Osmolar Contrast (ICD-10-PCS; 2017-10-23)
DX: I21.4 Non-ST elevation (NSTEMI) myocardial infarction (principal); K22.70 Barrett's esophagus without dysplasia; I25.10 Atherosclerotic heart disease of native coronary artery without angina pectoris; K21.9 Gastro-esophageal reflux disease without esophagitis; N28.9 Disorder of kidney and ureter, unspecified; R00.0 Tachycardia, unspecified; M54.9 Dorsalgia, unspecified; G89.29 Other chronic pain; I25.5 Ischemic cardiomyopathy; F17.290 Nicotine dependence, other tobacco product, uncomplicated; Z86.14 Personal history of Methicillin resistant Staphylococcus aureus infection; Z80.0 Family history of malignant neoplasm of digestive organs
CPT/HCPCS: 71046; 80048; 80061; 82550; 82552; 83735; 84484; 85002; 85025; 85027; 85610; 85730; 92928; 93005; 93458; 96361; 96374; 96375; 99152; 99153; C1725; C1760; C1769; C1874; C1887; C1893; C9113; G0269; J1170; J1644; J2250; J2270; J2405; J3010; J7030; J7040; Q9967

== ENCOUNTER 2018-03-17 17:35 | Inpatient (IN) ==
--- NOTE | 2018-03-17 18:24 | XR ---
EXAM DATE: 03/17/2018 5:58 PM EDT AGE/SEX: 52 years / Female INDICATIONS: Cough. Congestion. CLINICAL DATA: This is the patient's initial encounter. Patient reports that signs and symptoms have been present for 3 days and indicates a pain score of 4/10. MEDICAL/SURGICAL HISTORY: None. None. COMPARISON: [facility] [place], CHEST 1V SINGLE AP, 03/12/2018. . FINDINGS: A single AP view of the chest demonstrates the lungs to be symmetrically aerated without evidence of mass, infiltrate or effusion. The cardiomediastinal contours are unremarkable. Osseous structures a re intact. The patient is again noted to be status post cholecystectomy. CONCLUSION: No acute cardiopulmonary disease. There is no evidence of pneumonia. Electronically signed by: Kevon Blanco MD 03/17/2018 6:23 PM EDT
[2018-03-17] MEDS ORDERED: MethylPREDNISolone Sod Succinate Inj 125 MG/2 ML Vial IV.PUSH ONE (18:26)
[2018-03-17] MEDS ORDERED: Ketorolac Inj 30 MG/ML (IVP) Vial IV.PUSH ONE ×2 (18:29→22:22)
[2018-03-17 18:59] LABS: Baso # (Auto) 0.1 th/mm3 (0.0-0.2); Baso % (Auto) 0.7 % (0.0-2.0); Eos % (Auto) 0.1 % (0.0-4.0); Hematocrit 41.4 % (35.0-46.0); Hemoglobin 14.1 gm/dL (11.6-15.3); Lymph # (Auto) 2.6 th/mm3 (1.0-4.8); Lymph % (Auto) 25.8 % (9.0-44.0); Mean Corpuscular Hemoglobin 31.2 pg (27.0-34.0); Mean Corpuscular Volume 91.9 fL (80.0-100.0); Mean Platelet Volume 7.4 fL (7.0-11.0); Mono # (Auto) 0.5 th/mm3 (0.0-0.9); Mono % (Auto) 5.1 % (0.0-8.0); Neut # (Auto) 6.9 th/mm3 (1.8-7.7); Neut % (Auto) 68.3 % (16.0-70.0); Platelet Count 406 th/mm3 (150-450); Red Cell Distribution Width 13.8 % (11.6-17.2); White Blood Count 10.1 th/mm3 (4.0-11.0)
--- NOTE | 2018-03-17 19:06 | ED ---
HPI General Chief Complaint: Respiratory Symptoms Stated Complaint: Coughing/congestion/diarrhea/heart racing Time Seen by Provider: 03/17/18 18:20 Source: patient Mode of arrival: ambulatory Limitations: no limitations History of Present Illness HPI Narrative: Patient reports a cough for the past week to 10 days. Subjective fever reported. Patient reports pain in the anterior chest and thoracic back distribution. She attributes it to frequent coughing. She was seen here about 5 days ago and discharged with a diagnosis of pneumonia she went home with antibiotics and antitussives. She reports no improvement. She was unable to work today because of coughing. Patient has history coronary artery disease and was stented approximately 4 months prior. She reports compliance with Brilinta. Patient also suffers with GERD. patient is unable to differentiate quality of her chest pain today. Patient reports quitting smoking about 3 years ago. She vapes currently. She reports her smokes tobacco MD Complaint: fever and cough Onset (ago): hour(s) Duration: intermittent Severity: moderate Related Data Home Medications Medication Instructions Recorded Confirmed atorvastatin 40 tab PO DAILY 01/12/18 03/17/18 escitalopram oxalate [Lexapro] 20 mg PO DAILY 03/12/18 03/17/18 estradiol 1 mg PO DAILY 03/12/18 03/17/18 lorazepam 0.5 mg PO DAILY PRN 03/12/18 03/17/18 metoprolol tartrate 25 mg PO BID 03/12/18 03/17/18 ticagrelor [Brilinta] 90 mg PO BID 03/12/18 03/17/18 Previous Rx's Medication Instructions Recorded albuterol sulfate 1 inh INHALATION Q4-6H PRN #18 g 03/12/18 amoxicillin-pot clavulanate 1 tab PO BID #7 tab 03/12/18 [Augmentin] azithromycin See Label Instructions .ROUTE 03/12/18 .COMPLEX #6 tab codeine-guaifenesin [Guaifenesin 5 ml PO Q6H PRN #120 ml 03/12/18 AC] Allergies Allergy/AdvReac Type Severity Reaction Status Date / Time No Known Drug Allergies AdvReac Unknown Abdominal Verified 03/12/18 13:49 Pain *MDRO Multi-Drug Resistant AdvReac Unknown MRSA Uncoded 12/11/16 10:18 Organism Review of Systems ROS: all other systems reviewed are negative [facility] Medical History Medical History Anxiety (Acute) Depression (Acute) HTN (hypertension) (Acute) Heart attack (Acute) High cholesterol (Acute) Barretts esophagus (Chronic) Surgical History Surgical History H/O heart artery stent (Chronic) Social History Social History Substance History: No History of Abuse Second Hand Smoke Exposure: No Smoking Status: Unknown if ever smoked Tobacco Type: E-Cigarettes How Often Do You Have a Drink Containing Alcohol: Unable to Obtain Recent Travel in [facility] within the Last 8 Weeks: No Recent Out of Country Travel within the Last 8 Weeks: No Immunization History Tetanus Immunization: Unsure Exam Narrative Exam Narrative: GENERAL: 52-year-old female well-nourished well-developed speaking full sentences SKIN: Focused skin assessment warm/dry. HEAD: Atraumatic. Normocephalic. EYES: Pupils equal and round. No scleral icterus. No injection or drainage. ENT: No nasal bleeding or discharge. Mucous membranes pink and moist. NECK: Trachea midline. No JVD. CARDIOVASCULAR: Heart rate about 90. Regular rhythm. RESPIRATORY: Wheezing is present bilaterally. Minimal tachypnea at approximately 20 breaths/min GASTROINTESTINAL: Abdomen soft, non-tender, nondistended. Hepatic and splenic margins not palpable. MUSCULOSKELETAL: No obvious deformities. No clubbing. No cyanosis. No edema. NEUROLOGICAL: Awake and alert. No obvious cranial nerve deficits. Motor grossly within normal limits. Normal speech. PSYCHIATRIC: Appropriate mood and affect; insight and judgment normal. Course Initial Documented Vital Signs Temperature 98.0 F 03/17/18 17:40 Pulse Rate 82 03/17/18 17:40 Respiratory Rate 16 03/17/18 17:40 Blood Pressure 156/92 H 03/17/18 17:40 Pulse Oximetry 96 03/17/18 17:40 Last Documented Vital Signs Temperature 97.7 F 03/18/18 16:00 Pulse Rate 74 03/18/18 16:00 Respiratory Rate 17 03/18/18 16:00 Blood Pressure 121/82 03/18/18 16:00 Pulse Oximetry 96 03/18/18 16:00 Medical Decision Making [facility] Narrative Medical decision making narrative: Patient arrives with complaints concerning for pneumonia however coronary disease is not entirely excluded. She patient denies history of COPD however some element of pulmonary parenchymal injury is of concern given the history of smoking and the fact that she lives with a smoker. Lung exam reveals wheezing. Patient received albuterol and Solu- Medrol here. Plain film pending. Patient is reportedly on azithromycin for pneumonia. Case discussed with Dr. Jiang, [facility] emergency physician, who will assume care of the case at 7 PM which will include reassessment of the patient and evaluation of the pending laboratory results. The patient's case was checked out to me by Dr. Cassidy at the conclusion of his shift. Please see his initial history and physical. During the course of the patient's emergency department visit, the patient's history, examination, and differential diagnosis were reviewed with the patient. The patient was placed on a equipment monitor phototypesetting with oximetry and frequent blood pressure monitoring. The patient had IV access obtained and blood work sent for analysis. The patient on reexamination continues to have related to coughing. The patient also continues to have coarse wet breath sounds with intermittent wheezing. CTA reveals no evidence of pulmonary embolism, however mild patchy infiltrate in the right middle lobe most characteristic of an early pneumonia is noted. The patient has recently completed a course of Augmentin and Zithromax, therefore she has failed outpatient management of pneumonia. The patient will be admitted for what appears to be a COPD exacerbation and pneumonia. She was started on Levaquin. The patient's results were discussed with the patient, including the plan of care. I explained that further testing and/ or monitoring is indicated based on the patient's history, examination, and/ or laboratory findings. Therefore, I recommended admission for additional evaluation. The patient expressed understanding and was agreeable with this plan. The patient was admitted to the hospital in guarded condition and sent to a bed under the care of the [facility] service. Medical Screen Exam Complete: Yes Emergency Medical Condition: Yes Differential Diagnosis Differential Diagnosis: Pneumonia, bronchitis, coronary disease, pleural effusion, GERD Medical Records Medical records reviewed: Yes I reviewed the patient's medical records. Lab Data Result diagrams: 03/18/18 05:10 03/18/18 05:10 Lab Results 03/17/18 03/17/18 03/17/18 Range/Units 18:31 18:31 18:31 WBC 10.1 (4.0-11.0) th/mm3 RBC 4.50 (4.00-5.30) mil/mm3 Hgb 14.1 (11.6-15.3) gm/dL Hct 41.4 (35.0-46.0) % MCV 91.9 (80.0-100.0) fL MCH 31.2 (27.0-34.0) pg MCHC 34.0 (32.0-36.0) % RDW 13.8 (11.6-17.2) % Plt Count 406 (150-450) th/mm3 MPV 7.4 (7.0-11.0) fL Prelim Diff (Auto) Neut % (Auto) 68.3 (16.0-70.0) % Lymph % (Auto) 25.8 (9.0-44.0) % Sanborn % (Auto) 5.1 (0.0-8.0) % Eos % (Auto) 0.1 (0.0-4.0) % Baso % (Auto) 0.7 (0.0-2.0) % Neut # (Auto) 6.9 (1.8-7.7) th/mm3 Lymph # (Auto) 2.6 (1.0-4.8) th/mm3 Sanborn # (Auto) 0.5 (0.0-0.9) th/mm3 Eos # (Auto) 0.0 (0.0-0.4) th/mm3 Baso # (Auto) 0.1 (0.0-0.2) th/mm3 WBC Differential . Seg Neuts % (Manual) (16-70) % Band Neuts % (Manual) (0-6) % Lymphocytes % (Manual) (9-44) % Monocytes % (Manual) (0-8) % Abs Neuts (Manual) (1.8-7.7) th/mm3 Differential Comment Auto diff final Platelet Estimate (Normal) Platelet Morphology (Normal) Ovalocytes (None) D-Dimer Quant (PE/DVT) (0.00-0.50) mg/L FEU Sodium 140 (136-145) meq/L Potassium 4.6 (3.5-5.1) meq/L Chloride 108 H (98-107) meq/L Carbon Dioxide 24.0 (21.0-32.0) meq/L Anion Gap 8 (5-15) meq/L BUN 10 (7-18) mg/dL Creatinine 0.77 (0.50-1.00) mg/dL Estimated GFR 78 L (>89) mL/min Random Glucose 91 (74-106) mg/dL Calcium 8.3 L (8.5-10.1) mg/dL Total Bilirubin 0.3 (0.2-1.0) mg/dL AST 28 (15-37) U/L ALT 16 (10-53) U/L Alkaline Phosphatase 64 (45-117) U/L Troponin I Less than 0.02 L (0.02-0.05) ng/mL B-Natriuretic Peptide 18 (0-100) pg/mL Total Protein 8.0 (6.4-8.2) g/dL Albumin 3.5 (3.4-5.0) g/dL 03/17/18 03/17/18 03/18/18 Range/Units 19:45 21:50 00:44 WBC (4.0-11.0) th/mm3 RBC (4.00-5.30) mil/mm3 Hgb (11.6-15.3) gm/dL Hct (35.0-46.0) % MCV (80.0-100.0) fL MCH (27.0-34.0) pg MCHC (32.0-36.0) % RDW (11.6-17.2) % Plt Count (150-450) th/mm3 MPV (7.0-11.0) fL Prelim Diff (Auto) Neut % (Auto) (16.0-70.0) % Lymph % (Auto) (9.0-44.0) % Sanborn % (Auto) (0.0-8.0) % Eos % (Auto) (0.0-4.0) % Baso % (Auto) (0.0-2.0) % Neut # (Auto) (1.8-7.7) th/mm3 Lymph # (Auto) (1.0-4.8) th/mm3 Sanborn # (Auto) (0.0-0.9) th/mm3 Eos # (Auto) (0.0-0.4) th/mm3 Baso # (Auto) (0.0-0.2) th/mm3 WBC Differential Seg Neuts % (Manual) (16-70) % Band Neuts % (Manual) (0-6) % Lymphocytes % (Manual) (9-44) % Monocytes % (Manual) (0-8) % Abs Neuts (Manual) (1.8-7.7) th/mm3 Differential Comment Platelet Estimate (Normal) Platelet Morphology (Normal) Ovalocytes (None) D-Dimer Quant (PE/DVT) 0.82 H (0.00-0.50) mg/L FEU Sodium (136-145) meq/L Potassium (3.5-5.1) meq/L Chloride (98-107) meq/L Carbon Dioxide (21.0-32.0) meq/L Anion Gap (5-15) meq/L BUN (7-18) mg/dL Creatinine (0.50-1.00) mg/dL Estimated GFR (>89) mL/min Random Glucose (74-106) mg/dL Calcium (8.5-10.1) mg/dL Total Bilirubin (0.2-1.0) mg/dL AST (15-37) U/L ALT (10-53) U/L Alkaline Phosphatase (45-117) U/L Troponin I Less than 0.02 L Less than 0.02 L (0.02-0.05) ng/mL B-Natriuretic Peptide (0-100) pg/mL Total Protein (6.4-8.2) g/dL Albumin (3.4-5.0) g/dL 03/18/18 03/18/18 Range/Units 05:10 05:10 WBC 7.2 (4.0-11.0) th/mm3 RBC 4.20 (4.00-5.30) mil/mm3 Hgb 13.0 (11.6-15.3) gm/dL Hct 39.2 (35.0-46.0) % MCV 93.5 (80.0-100.0) fL MCH 30.9 (27.0-34.0) pg MCHC 33.1 (32.0-36.0) % RDW 13.9 (11.6-17.2) % Plt Count 313 (150-450) th/mm3 MPV 7.9 (7.0-11.0) fL Prelim Diff (Auto) Manual diff required Neut % (Auto) (16.0-70.0) % Lymph % (Auto) (9.0-44.0) % Sanborn % (Auto) (0.0-8.0) % Eos % (Auto) (0.0-4.0) % Baso % (Auto) (0.0-2.0) % Neut # (Auto) (1.8-7.7) th/mm3 Lymph # (Auto) (1.0-4.8) th/mm3 Sanborn # (Auto) (0.0-0.9) th/mm3 Eos # (Auto) (0.0-0.4) th/mm3 Baso # (Auto) (0.0-0.2) th/mm3 WBC Differential Manual diff final Seg Neuts % (Manual) 88 H (16-70) % Band Neuts % (Manual) 2 (0-6) % Lymphocytes % (Manual) 6 L (9-44) % Monocytes % (Manual) 4 (0-8) % Abs Neuts (Manual) 6.5 (1.8-7.7) th/mm3 Differential Comment . Platelet Estimate Normal (Normal) Platelet Morphology Normal (Normal) Ovalocytes 1+ H (None) D-Dimer Quant (PE/DVT) (0.00-0.50) mg/L FEU Sodium 138 (136-145) meq/L Potassium 4.0 (3.5-5.1) meq/L Chloride 107 (98-107) meq/L Carbon Dioxide 22.1 (21.0-32.0) meq/L Anion Gap 9 (5-15) meq/L BUN 16 (7-18) mg/dL Creatinine 0.67 (0.50-1.00) mg/dL Estimated GFR Greater than 89 (>89) mL/min Random Glucose 135 H (74-106) mg/dL Calcium 8.0 L (8.5-10.1) mg/dL Total Bilirubin 0.2 (0.2-1.0) mg/dL AST 12 L (15-37) U/L ALT 12 (10-53) U/L Alkaline Phosphatase 59 (45-117) U/L Troponin I Less than 0.02 L (0.02-0.05) ng/mL B-Natriuretic Peptide (0-100) pg/mL Total Protein 7.0 D (6.4-8.2) g/dL Albumin 3.1 L (3.4-5.0) g/dL Imaging Data Attestation: I personally reviewed and interpreted this imaging study as follows : Radiologist's impression: Chest X-Ray 03/17/18 17:58 CONCLUSION: No acute cardiopulmonary disease. There is no evidence of pneumonia. Chest CTA 03/17/18 20:31 CONCLUSION: 1. No evidence of pulmonary embolism. 2. Mild patchy infiltrate in the right middle lobe most characteristic of early pneumonia. 3. Coronary artery stent catheter noted. 4. Mild atelectasis in the occluded bronchus and the left lower lobe. ECG Data Attestation: I personally reviewed and interpreted this ECG as follows: Interpretation: The patient had an EKG done on arrival that shows a sinus rhythm heart rate of 64, QRS duration is 98 ms, QTC [address] segment elevation or depression. T waves are inverted in V1, V2. Discharge Plan Discharge Disposition Patient Disposition: 30 Still Patient Discharge Details Diagnosis: Pneumonia Physicians Team ED Provider: Jo Jiang Primary Care Provider: Jeff Price Attending Provider: Bonilla Iniguez Status ED Status: Left Department Discharge Information Discharge Date/Time: 03/17/18 22:35
[2018-03-17 19:13] LABS: Alanine Aminotransferase 16 U/L (10-53); Albumin 3.5 g/dL (3.4-5.0); Anion Gap 8 meq/L (5-15); Aspartate Aminotransferase 28 U/L (15-37); Blood Urea Nitrogen 10 mg/dL (7-18); Calcium 8.3 mg/dL (8.5-10.1); Chloride 108 meq/L (98-107); Glomerular Filtration Rate 78 mL/min (>89); Glucose,Random 91 mg/dL (74-106); Sodium 140 meq/L (136-145)
[2018-03-17 19:14] LABS: Potassium 4.6 meq/L (3.5-5.1)
[2018-03-17 19:17] LABS: Alkaline Phosphatase 64 U/L (45-117)
[2018-03-17] MEDS ORDERED: Acetaminophen 325 MG Tablet PO ONE (21:14)
--- NOTE | 2018-03-17 21:47 | CT ---
EXAM DATE: 03/17/2018 9:02 PM EDT AGE/SEX: 52 years / Female INDICATIONS: Chest pain; rule out pulmonary embolus. CLINICAL DATA: This is the patient's initial encounter. Patient reports that signs and symptoms have been present for 4 - 6 days and indicates a pain score of 7/10. MEDICAL/SURGICAL HISTORY: Hypertension. Cardiovascular disease. Coronary stent None. RADIATION DOSE: 5.54 CTDI (mGy) COMPARISON: No prior exams available for comparison. TECHNIQUE: Volumetric scanning was performed using a multi-row detector CT scanner during bolus infu tyra of 73 ml Omnipaque 350 (iohexol) nonionic water-soluble contrast as a single exam dose. The lakia a was post processed with a variety of visualization algorithms including full volume maximum intensi ty projection and sliding thin slab reformation. Using automated exposure control and adjustment of t he mA and/or kV according to patient size, radiation dose was kept as low as reasonably achievable to obtain optimal diagnostic quality images. DICOM format image data is available electronically for r eview and comparison. FINDINGS: Pulmonary Arteries: No filling defects are seen in the pulmonary arteries out to the subsegmental ve ssels. The left and right pulmonary arteries are normal in diameter. Lung: There is mild patchy infiltrate in the right medial middle lobe. There is mild atelectasis in the medial left lower lobe with small occluded bronchus.. Effusion: None. Mediastinum: No evidence of mediastinal or hilar adenopathy. A coronary stent catheter is present. Other: The axilla is unremarkable. CONCLUSION: 1. No evidence of pulmonary embolism. 2. Mild patchy infiltrate in the right middle lobe most characteristic of early pneumonia. 3. Coronary artery stent catheter noted. 4. Mild atelectasis in the occluded bronchus and the left lower lobe. Electronically signed by: Kevon Blanco MD 03/17/2018 9:46 PM EDT
[2018-03-17] MEDS ORDERED: Bisacodyl 10 MG Supp RECTAL PRN (22:11)
--- NOTE | 2018-03-17 22:12 | P.HPIM ---
History of Present Illness Primary Care Physician: Jeff Price DO History of Present Illness: This is a 52-year-old female with a PMH of Anxiety, Depression, HTN, CAD and Hyperlipidemia who presented to ER with complaints of cough, SOB and chest pain for approx 1wk. Seen in ER on 03/12/18 for similar complaints, CXR w/ no acute findings, d/c'd on Z-pack and Augmentin, reports compliance w/ medications. Today, notes worsening cough and chest/back pain. Pain is severe, 10/10, worse w/ inspiration/cough, non-radiating. Reports h/o CAD w/ stent placement in October 2017, on [employer], works at and follows w/ [employer] there. On arrival, BP 156/92, HR 82, O2 sat 96% on RA, Afebrile. CBC unremarkable. D-dimer 0.82. Chemistry essentially unremarkable. Troponin negative. CXR with no acute findings. CTA Chest with no evidence of PE, mild patchy infiltrate right middle lobe characteristic of early pneumonia, mild atelectasis in occluded bronchus left lower lobe. S/p Levaquin, Solu-Medrol and DuoNeb in ER. Continues to complain of severe pain w/ cough and inspiration, requesting Dilaudid. - Diagnosis (1) PNA (pneumonia) (2) Failure of outpatient treatment (3) Chest pain Inpatient Certification: I certify that the inpatient services were ordered in accordance with Medicare regulations governing the order. This includes certification that hospital inpatient services are reasonable and necessary and in the case of services not specified as inpatient-only under 42 CFR 419.22(n), that they are appropriately provided as inpatient services in accordance to with the 2-midnight benchmark under 43 CFR 412.3(e) Estimated Total Length of Stay (Days): 2 Plans for Post Hospital Care: Not yet determined Review of Systems PAST FAMILY HISTORY: Reviewed. No h/o DM or CAD All other systems reviewed negative except as stated in HPI [facility] - History History Provided By: Patient - Medical History Medical History: Medical History (Last Updated 03/12/18 @ 13:56 by GIACOMO Farrar) Anxiety Depression HTN (hypertension) Heart attack High cholesterol Barretts esophagus - Surgical History Surgical History: Surgical History (Last Updated 03/12/18 @ 13:56 by GIACOMO Farrar) H/O heart artery stent - Tobacco History Second Hand Smoke Exposure: No Smoking Status: Unknown if ever smoked Tobacco Type: E-Cigarettes - Alcohol History How Often Do You Have a Drink Containing Alcohol: Unable to Obtain - Substance Use History Substance History: No History of Abuse - Travel History Recent Travel in the [place] Within the Last 8 Weeks: No Recent Travel Out of the Country Within the Last 8 Weeks: No - Immunization History Tetanus Immunization: Unsure Medications and Allergies Active Medications: Active Medications Levofloxacin/Dextrose (Levaquin 750 Mg Premix Inj) 150 mls @ 100 mls/hr IV.SIG ONCE ONE Stop: 03/17/18 23:22 Last Admin: 03/17/18 22:06 Dose: 100 mls/hr Allergies Allergy/AdvReac Type Severity Reaction Status Date / Time No Known Drug Allergies AdvReac Unknown Abdominal Verified 03/12/18 13:49 Pain *MDRO Multi-Drug Resistant AdvReac Unknown MRSA Uncoded 12/11/16 10:18 Organism Home Medications Medication Instructions Recorded Confirmed Type atorvastatin 40 tab PO DAILY 01/12/18 03/17/18 History escitalopram oxalate [Lexapro] 20 mg PO DAILY 03/12/18 03/17/18 History estradiol 1 mg PO DAILY 03/12/18 03/17/18 History lorazepam 0.5 mg PO DAILY PRN 03/12/18 03/17/18 History metoprolol tartrate 25 mg PO BID 03/12/18 03/17/18 History ticagrelor [Brilinta] 90 mg PO BID 03/12/18 03/17/18 History Exam Vital signs: Vital Signs 03/17/18 17:40 03/17/18 19:09 Temperature 98.0 F Pulse Rate 82 67 Respiratory Rate 16 16 Blood Pressure 156/92 H Pulse Oximetry 96 Intake & Output 03/17/18 03/17/18 03/18/18 06:59 18:59 06:59 Weight 58.967 kg Narrative: PE: GENERAL: Middle-aged white female in no acute distress. SKIN: Focused skin assessment warm and dry. HEENT: PERRLA, EOMI. No scleral icterus or conjunctival pallor. No lid lag or facial droop. CARDIOVASCULAR: Regular rate and rhythm. No obvious murmurs to auscultation. No chest tenderness to palpation. RESPIRATORY: No obvious rhonchi. +wheezing. Clear to auscultation. Breath sounds equal bilaterally. GASTROINTESTINAL: Abdomen soft, non-tender, nondistended. BS normal. MUSCULOSKELETAL: Extremities without clubbing, cyanosis, or edema. No obvious deformities. NEUROLOGICAL: Awake, alert and oriented x4. No focal neurologic deficits. Moving both upper and lower extremities spontaneously. PSYCHIATRIC: Appropriate mood and affect. Insight and judgment normal. Results - Labs CBC & Chem 7: 03/17/18 18:31 03/17/18 18:31 Labs: Short CBC 03/17/18 Range/Units 18:31 WBC 10.1 (4.0-11.0) th/mm3 Hgb 14.1 (11.6-15.3) gm/dL Hct 41.4 (35.0-46.0) % Plt Count 406 (150-450) th/mm3 BMP 03/17/18 18:31 Sodium 140 Potassium 4.6 Chloride 108 H Carbon Dioxide 24.0 BUN 10 Creatinine 0.77 Calcium 8.3 L Cardiac Enzymes 03/17/18 Range/Units 18:31 Troponin I Less than 0.02 L (0.02-0.05) ng/mL Liver Function 03/17/18 Range/Units 18:31 Total Bilirubin 0.3 (0.2-1.0) mg/dL AST 28 (15-37) U/L ALT 16 (10-53) U/L Alkaline Phosphatase 64 (45-117) U/L Albumin 3.5 (3.4-5.0) g/dL - Imaging Impressions Chest X-Ray 03/17/18 17:58 CONCLUSION: No acute cardiopulmonary disease. There is no evidence of pneumonia. Chest CTA 03/17/18 20:31 CONCLUSION: 1. No evidence of pulmonary embolism. 2. Mild patchy infiltrate in the right middle lobe most characteristic of early pneumonia. 3. Coronary artery stent catheter noted. 4. Mild atelectasis in the occluded bronchus and the left lower lobe. Caprini VTE Risk Assessment Caprini VTE Risk Assessment: No/Low Risk (score <= 1) Caprini Risk Assessment Model: Point Value = 1 Point Value = 2 Point Value = 3 Point Value = 5 Age 41-60 Minor surgery BMI > 25 kg/m2 Swollen legs Varicose veins or History of unexplained or recurrent spontaneous Oral contraceptives or hormone replacement Sepsis (< 1 month) Serious lung disease, including pneumonia (< 1 month) Abnormal pulmonary function Acute myocardial infarction Congestive heart failure (< 1 month) History of inflammatory bowel disease Medical patient at bed rest Age 61-74 Arthroscopic surgery Major open surgery (> 45 min) Laparoscopic surgery (> 45 min) Malignancy Confined to bed (> 72 hours) Immobilizing plaster cast Central venous access Age >= 75 History of VTE Family history of VTE Factor V Leiden Prothrombin [id number] Lupus anticoagulant Anticardiolipin antibodies Elevated serum homocysteine Heparin-induced thrombocytopenia Other congenital or acquired thrombophilia Stroke (< 1 month) Elective arthroplasty Hip, pelvis, or leg fracture Acute spinal cord injury (< 1 month) Prophylaxis Regimen: Total Risk Factor Score Risk Level Prophylaxis Regimen 0-1 Low Early ambulation 2 Moderate Order ONE of the following: *Sequential Compression Device (SCD) *Heparin 5000 units SQ BID 3-4 Higher Order ONE of the following medications: *Heparin 5000 units SQ TID *Enoxaparin/Lovenox 40 mg SQ daily (WT < 150 kg, CrCl > 30 mL/min) *Enoxaparin/Lovenox 30 mg SQ daily (WT < 150 kg, CrCl > 10-29 mL/min) *Enoxaparin/Lovenox 30 mg SQ BID (WT < 150 kg, CrCl > 30 mL/min) AND/OR *Sequential Compression Device (SCD) 5 or more Highest Order ONE of the following medications: *Heparin 5000 units SQ TID (Preferred with Epidurals) *Enoxaparin/Lovenox 40 mg SQ daily (WT < 150 kg, CrCl > 30 mL/min) *Enoxaparin/Lovenox 30 mg SQ daily (WT < 150 kg, CrCl > 10-29 mL/min) *Enoxaparin/Lovenox 30 mg SQ BID (WT < 150 kg, CrCl > 30 mL/min) AND *Sequential Compression Device (SCD) Assessment and Plan - Assessment (1) PNA (pneumonia) Code(s): J18.9 - Pneumonia, unspecified organism Status: Acute (2) Failure of outpatient treatment Code(s): Z78.9 - Other specified health status Status: Acute (3) Chest pain Code(s): R07.9 - Chest pain, unspecified Status: Acute - Plan A/P: 1. PNA: CXR w/ no acute findings, CTA Chest negative for PE, however + infiltrate RML, images reviewed. S/p Levaquin IV in ER, will continue w/ IV Abx , DuoNeb prn, +wheezing on exam, continue w/ Solu-Medrol 2. Failed Outpt Tx: previously on Z-pack and Augmentin since 03/12/18 for PNA, persistent infiltrates, continue w/ IV Abx as above. 3. Chest Pain: Atypical, likely secondary to PNA w/ pleuritic component, reporting severe pain, requesting Dilaudid. Initial trop negative, will check serial cardiac enzymes to r/o underlying ischemia. 4. DVT Prophylaxis: SCD/Teds 5. Social work for d/c planning as needed. 6. Case discussed w/ ER physician at length, labs/records/imaging reviewed by me
[2018-03-17] MEDS ORDERED: HYDROmorphone PF Inj 2 MG/ML Vial IV.PUSH SCH (22:30)
[2018-03-18] MEDS: MethylPREDNISolone Sod Succinate Inj 40 MG/ML Vial IV.PUSH SCH ×4 (00:23→17:40)
[2018-03-18] MEDS: Acetaminophen 325 MG Tablet PO PRN ×3 (02:02→14:05)
[2018-03-18] MEDS: LORazepam 0.5 MG Tablet PO PRN (02:02)
[2018-03-18 06:55] LABS: Hematocrit 39.2 % (35.0-46.0); Mean Corpuscular HGB Conc 33.1 % (32.0-36.0); Mean Corpuscular Hemoglobin 30.9 pg (27.0-34.0); Mean Corpuscular Volume 93.5 fL (80.0-100.0); Mean Platelet Volume 7.9 fL (7.0-11.0); Platelet Count 313 th/mm3 (150-450); Red Cell Distribution Width 13.9 % (11.6-17.2); White Blood Count 7.2 th/mm3 (4.0-11.0)
[2018-03-18 07:05] LABS: Albumin 3.1 g/dL (3.4-5.0); Anion Gap 9 meq/L (5-15); Aspartate Aminotransferase 12 U/L (15-37); Blood Urea Nitrogen 16 mg/dL (7-18); Carbon Dioxide 22.1 meq/L (21.0-32.0); Chloride 107 meq/L (98-107); Glomerular Filtration Rate Greater Than 89 mL/min (>89); Glucose,Random 135 mg/dL (74-106); Sodium 138 meq/L (136-145)
[2018-03-18 07:09] LABS: Alanine Aminotransferase 12 U/L (10-53); Alkaline Phosphatase 59 U/L (45-117)
[2018-03-18 07:52] LABS: Lymphocytes 6 % (9-44); Monocytes 4 % (0-8); Ovalocytes 1+; Platelet Estimate Normal (Normal); Platelet Morphology Normal (Normal)
[2018-03-18] MEDS: Metoprolol Tartrate 25 MG Tablet PO SCH ×2 (08:39→21:00)
[2018-03-18] MEDS: Senna/Docusate Sodium 8.6/50 MG Tablet PO SCH ×2 (08:39→21:00)
[2018-03-18] MEDS: guaiFENesin 600 MG ER Tablet PO SCH ×2 (08:39→21:00)
[2018-03-18] MEDS ORDERED: ATORVASTATIN PO SCH (09:00)
[2018-03-18] MEDS ORDERED: HYDROmorphone PF Inj 2 MG/ML Vial IV.PUSH ONE ×2 (10:00→22:17)
--- NOTE | 2018-03-18 10:06 | P.PNIM ---
Subjective Interval history: Nurse reported patient complained of lower back pain not relieved with Percocet from last night, patient requesting Dilaudid. Patient laying down in bed complains of pain on the lower back abdomen and chest from coughing, patient stated once pain medication, not relieved with Percocet, requesting for Dilaudid stated she knows Dilaudid is the only pain medication that will relieve her pain, states that she will go home if her pain is not treated. Patient stated pain is a 10 out of 10, which is disabling, does not want to eat until her pain is better. Patient still complaining of coughing and wheezing however it is better she stated. Patient denies any nausea or vomiting, denies any headache or dizziness, denies any fever or chills.. Physical Exam Vital signs: Vital Signs 03/17/18 17:40 03/17/18 19:09 03/17/18 22:30 Temperature 98.0 F Pulse Rate 82 67 Respiratory Rate 16 16 Blood Pressure 156/92 H 142/71 H Pulse Oximetry 96 03/17/18 22:31 03/18/18 00:00 03/18/18 00:17 Temperature 97.9 F Pulse Rate 82 77 Respiratory Rate 16 19 Blood Pressure 126/68 Pulse Oximetry 96 98 03/18/18 00:18 03/18/18 02:59 03/18/18 04:00 Temperature 98.4 F Pulse Rate 75 Respiratory Rate 19 19 17 Blood Pressure 96/50 L Pulse Oximetry 94 L 03/18/18 07:15 03/18/18 08:00 Temperature 97.7 F Pulse Rate 72 Respiratory Rate 19 17 Blood Pressure 110/60 Pulse Oximetry 95 Intake & Output 03/17/18 03/18/18 03/18/18 18:59 06:59 18:59 Intake Total 630 / 630 Balance 630 / 630 Weight 58.967 kg 60.1 kg Intake: IV 150 / 150 Levaquin 750 mg Premix Inj 150 150 / 150 ML @ 100 mls/hr IV.SIG ONCE ONE Rx#:[id number] Oral 480 / 480 Other: # Voids 3 Weight On Admission 60.1 kg Narrative: GENERAL: Well-developed, well-nourished, no apparent distress SKIN: Warm and dry. HEAD: Atraumatic. Normocephalic. EYES: Pupils equal and round. No scleral icterus. No injection or drainage. ENT: No nasal bleeding or discharge. Mucous membranes pink and moist. NECK: Trachea midline. No JVD. CARDIOVASCULAR: Regular rate and rhythm. RESPIRATORY: No accessory muscle use. Expiratory wheezes, coughing with taking a deep breath, breath sounds equal bilaterally. GASTROINTESTINAL: Abdomen soft, non-tender, nondistended. Hepatic and splenic margins not palpable. MUSCULOSKELETAL: Extremities without clubbing, cyanosis, or edema. No obvious deformities. NEUROLOGICAL: Awake and alert. No obvious cranial nerve deficits. Motor grossly within normal limits. Five out of 5 muscle strength in the arms and legs. Normal speech. PSYCHIATRIC: Appropriate mood and affect; insight and judgment normal. Results - Labs CBC & Chem 7: 03/18/18 05:10 03/18/18 05:10 Laboratory Results - last 24 hr 03/17/18 03/17/18 03/17/18 18:31 18:31 18:31 WBC 10.1 RBC 4.50 Hgb 14.1 Hct 41.4 MCV 91.9 MCH 31.2 MCHC 34.0 RDW 13.8 Plt Count 406 MPV 7.4 Prelim Diff (Auto) Neut % (Auto) 68.3 Lymph % (Auto) 25.8 [place] % (Auto) 5.1 Eos % (Auto) 0.1 Baso % (Auto) 0.7 Neut # (Auto) 6.9 Lymph # (Auto) 2.6 [place] # (Auto) 0.5 Eos # (Auto) 0.0 Baso # (Auto) 0.1 WBC Differential . Seg Neuts % (Manual) Band Neuts % (Manual) Lymphocytes % (Manual) Monocytes % (Manual) Abs Neuts (Manual) Differential Comment Auto diff final Platelet Estimate Platelet Morphology Ovalocytes D-Dimer Quant (PE/DVT) Sodium 140 Potassium 4.6 Chloride 108 H Carbon Dioxide 24.0 Anion Gap 8 BUN 10 Creatinine 0.77 Estimated GFR 78 L Random Glucose 91 Calcium 8.3 L Total Bilirubin 0.3 AST 28 ALT 16 Alkaline Phosphatase 64 Troponin I Less than 0.02 L B-Natriuretic Peptide 18 Total Protein 8.0 Albumin 3.5 03/17/18 03/17/18 03/18/18 19:45 21:50 00:44 WBC RBC Hgb Hct MCV MCH MCHC RDW Plt Count MPV Prelim Diff (Auto) Neut % (Auto) Lymph % (Auto) [place] % (Auto) Eos % (Auto) Baso % (Auto) Neut # (Auto) Lymph # (Auto) [place] # (Auto) Eos # (Auto) Baso # (Auto) WBC Differential Seg Neuts % (Manual) Band Neuts % (Manual) Lymphocytes % (Manual) Monocytes % (Manual) Abs Neuts (Manual) Differential Comment Platelet Estimate Platelet Morphology Ovalocytes D-Dimer Quant (PE/DVT) 0.82 H Sodium Potassium Chloride Carbon Dioxide Anion Gap BUN Creatinine Estimated GFR Random Glucose Calcium Total Bilirubin AST ALT Alkaline Phosphatase Troponin I Less than 0.02 L Less than 0.02 L B-Natriuretic Peptide Total Protein Albumin 03/18/18 03/18/18 05:10 05:10 WBC 7.2 RBC 4.20 Hgb 13.0 Hct 39.2 MCV 93.5 MCH 30.9 MCHC 33.1 RDW 13.9 Plt Count 313 MPV 7.9 Prelim Diff (Auto) Manual diff required Neut % (Auto) Lymph % (Auto) [place] % (Auto) Eos % (Auto) Baso % (Auto) Neut # (Auto) Lymph # (Auto) [place] # (Auto) Eos # (Auto) Baso # (Auto) WBC Differential Manual diff final Seg Neuts % (Manual) 88 H Band Neuts % (Manual) 2 Lymphocytes % (Manual) 6 L Monocytes % (Manual) 4 Abs Neuts (Manual) 6.5 Differential Comment . Platelet Estimate Normal Platelet Morphology Normal Ovalocytes 1+ H D-Dimer Quant (PE/DVT) Sodium 138 Potassium 4.0 Chloride 107 Carbon Dioxide 22.1 Anion Gap 9 BUN 16 Creatinine 0.67 Estimated GFR Greater than 89 Random Glucose 135 H Calcium 8.0 L Total Bilirubin 0.2 AST 12 L ALT 12 Alkaline Phosphatase 59 Troponin I Less than 0.02 L B-Natriuretic Peptide Total Protein 7.0 D Albumin 3.1 L Microbiology 03/17/18 18:31 Nasal Wash Influenza Types A,B Antigen - Final Negative for FLU A and B antigen Infection due to influenza A or B cannot be ruled out since the antigen present in the sample may be below the detection limit of the test. - Imaging Impressions Chest X-Ray 03/17/18 17:58 CONCLUSION: No acute cardiopulmonary disease. There is no evidence of pneumonia. Chest CTA 03/17/18 20:31 CONCLUSION: 1. No evidence of pulmonary embolism. 2. Mild patchy infiltrate in the right middle lobe most characteristic of early pneumonia. 3. Coronary artery stent catheter noted. 4. Mild atelectasis in the occluded bronchus and the left lower lobe. Assessment and Plan - Assessment (1) PNA (pneumonia) Code(s): J18.9 - Pneumonia, unspecified organism Status: Acute (2) Failure of outpatient treatment Code(s): Z78.9 - Other specified health status Status: Acute (3) Chest pain Code(s): R07.9 - Chest pain, unspecified Status: Acute - Plan This is a 52-year-old female with a PMH of Anxiety, Depression, HTN, CAD and Hyperlipidemia who presented to ER with complaints of cough, SOB and chest pain for approx 1wk. 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 On arrival, BP 156/92, HR 82, O2 sat 96% on RA, Afebrile. CBC unremarkable. D-dimer 0.82. Chemistry essentially unremarkable. Troponin negative. CXR with no acute findings. CTA Chest with no evidence of PE, mild patchy infiltrate right middle lobe characteristic of early pneumonia, mild atelectasis in occluded bronchus left lower lobe. Status post Levaquin, Solu-Medrol and DuoNeb in ER. Continues to complain of severe pain w/ cough and inspiration, requesting Dilaudid. PNA/failed out patient treatment - CXR w/ no acute findings, CTA Chest negative for PE, +infiltrate RMLl - failed out patient treatment on Z-pack and Augmentin since 03/12/18 for PNA, persistent infiltrates -Blood Culture negative so far, Influenza negative - continue w/ IV Levaquin - DuoNeb schedule and prn, continue Solu-Medrol Chest pain/Back Pain/ Abdominal pain - Atypical, likely secondary to PNA w/ pleuritic component, reporting severe pain, requesting Dilaudid. Initial trop negative, will check serial cardiac enzymes to r/o underlying ischemia. -prn pain medication, monitor response CAD Hx of/s/p stent placement on October 2017 Serial troponin negative -continue metoprolol and Brilinta Hx Anxiety/depression -continue current medications DVT Prophylaxis: SCD/Teds Code Status: full code Discussed Condition With: patient and nurse
[2018-03-18] MEDS: guaiFENesin/Codeine Syrup 200 MG/20 MG 10 ML UDC PO PRN ×2 (14:04→21:00)
[2018-03-18] MEDS: Budesonide-Formoterol 160/4.5 MCG 6 GM Inhaler INH SCH ×2 (14:25→22:36)
--- NOTE | 2018-03-18 16:12 | ECG ---
Date Performed: 03/17/2018 Time Performed: 19:49:11 PTAGE: 52 years EKG: Sinus rhythm NORMAL ECG PREVIOUS TRACING : 03/12/2018 13.42 Since the previous tracing, no significant change noted DOCTOR: Diana Weinberg Interpretating Date/Time 03/18/2018 16:10:22
--- NOTE | 2018-03-18 19:42 | XR ---
EXAM DATE: 03/18/2018 12:00 AM EDT AGE/SEX: 52 years / Female INDICATIONS: Lower back pain from laying in bed. CLINICAL DATA: This is the patient's initial encounter. Patient reports that signs and symptoms have been present for 2 days and indicates a pain score of 8/10. MEDICAL/SURGICAL HISTORY: None. . Lumbar fusion 2004. COMPARISON: No prior exams available for comparison. FINDINGS: Lumbar spine alignment is normal. Vertebral bodies have normal height. No cortical break or trabecula r disruption. Patient has had fusion with posterior instrumentation at L4/L5. Moderate disc space narrowing and moderate bilateral facet osteoarthritis seen at L5/S1. CONCLUSION: No acute abnormality of the lumbar spine demonstrated. Surgical and degenerative changes as above. Electronically signed by: Tod Carrizales MD 03/18/2018 7:41 PM EDT
[2018-03-19] MEDS: MethylPREDNISolone Sod Succinate Inj 40 MG/ML Vial IV.PUSH SCH ×3 (00:01→12:33)
[2018-03-19] MEDS: LORazepam 0.5 MG Tablet PO PRN (08:55)
[2018-03-19] MEDS: Metoprolol Tartrate 25 MG Tablet PO SCH ×2 (08:55→20:25)
[2018-03-19] MEDS: guaiFENesin 600 MG ER Tablet PO SCH ×2 (08:55→20:25)
[2018-03-19] MEDS: guaiFENesin/Codeine Syrup 200 MG/20 MG 10 ML UDC PO PRN ×2 (08:55→15:07)
[2018-03-19] MEDS: Senna/Docusate Sodium 8.6/50 MG Tablet PO SCH ×2 (08:56→20:25)
[2018-03-19] MEDS: Lidocaine 5% Patch T-DERMAL SCH (08:56)
[2018-03-19] MEDS: Budesonide-Formoterol 160/4.5 MCG 6 GM Inhaler INH SCH ×2 (08:57→20:33)
--- NOTE | 2018-03-19 14:30 | P.PNIM ---
Subjective Interval history: Follow-up pneumonia, failed outpatient treatment, pleuritic pain, generalized pain. Patient sitting in the bed, but continued to complain of the generalized pain stated she is not addicted to medication but wants to be comfortable to stay here. Patient did not have any specific area of pain stated in his chest and abdomen in the back. Patient stated pain at 7 out of 10 and only go down to 6 out of 10 with the pain medication. Patient stated pain aggravated from laying there all day patient encourage to to ambulate and out of bed. Patient requesting an IV pain medication in between the [place]. Checked [employer],the last fill for the [place] was in October for 4 days. Currently patient recently filled out prescription for Xanax and Tussin with codeine. Patient denies any headache or dizziness denies nausea or vomiting denies any fever or chills. Physical Exam Vital signs: Vital Signs 03/18/18 16:00 03/18/18 20:00 03/18/18 20:41 Temperature 97.7 F Pulse Rate 74 71 79 Respiratory Rate 17 18 Blood Pressure 121/82 Pulse Oximetry 96 03/19/18 00:00 03/19/18 00:09 03/19/18 04:00 Temperature 97.9 F Pulse Rate 77 77 67 Respiratory Rate 18 Blood Pressure 129/89 Pulse Oximetry 99 03/19/18 08:00 03/19/18 11:37 03/19/18 12:00 Temperature 98.1 F 98.1 F Pulse Rate 83 72 74 Respiratory Rate 18 16 18 Blood Pressure 122/59 L 133/69 Pulse Oximetry 96 97 Intake & Output 03/18/18 03/19/18 03/19/18 18:59 06:59 18:59 Intake Total 720 / 720 150 / 150 Balance 720 / 720 150 / 150 Intake: IV 150 / 150 Levaquin 750 mg Premix Inj 150 150 / 150 ML @ 100 mls/hr IV.SIG Q24H [facility] Rx#:[id number] Oral 720 / 720 Other: # Voids 3 1 Date of Last Bowel Movement 03/17/18 03/17/18 # Bowel Movements 0 Narrative: GENERAL: Well-developed, well-nourished, no apparent distress SKIN: Warm and dry. HEAD: Atraumatic. Normocephalic. EYES: Pupils equal and round. No scleral icterus. No injection or drainage. ENT: No nasal bleeding or discharge. Mucous membranes pink and moist. NECK: Trachea midline. No JVD. CARDIOVASCULAR: Regular rate and rhythm. RESPIRATORY: No accessory muscle use. Expiratory wheezes, coughing with taking a deep breath, breath sounds equal bilaterally. GASTROINTESTINAL: Abdomen soft, non-tender, nondistended. Hepatic and splenic margins not palpable. MUSCULOSKELETAL: Extremities without clubbing, cyanosis, or edema. No obvious deformities. NEUROLOGICAL: Awake and alert. No obvious cranial nerve deficits. Motor grossly within normal limits. Five out of 5 muscle strength in the arms and legs. Normal speech. PSYCHIATRIC: Appropriate mood and affect; insight and judgment normal. Results - Labs CBC & Chem 7: 03/18/18 05:10 03/18/18 05:10 Microbiology 03/17/18 22:00 Blood - Peripheral Aerobic Blood Culture - Preliminary No growth in 2 days 03/17/18 22:00 Blood - Peripheral Anaerobic Blood Culture - Preliminary No growth in 2 days 03/17/18 22:05 Blood - Peripheral Aerobic Blood Culture - Preliminary No growth in 2 days 03/17/18 22:05 Blood - Peripheral Anaerobic Blood Culture - Preliminary No growth in 2 days - Imaging Impressions Lumbar Spine X-Ray 03/18/18 00:00 CONCLUSION: No acute abnormality of the lumbar spine demonstrated. Surgical and degenerative changes as above. Assessment and Plan - Assessment (1) PNA (pneumonia) Code(s): J18.9 - Pneumonia, unspecified organism Status: Acute (2) Failure of outpatient treatment Code(s): Z78.9 - Other specified health status Status: Acute (3) Chest pain Code(s): R07.9 - Chest pain, unspecified Status: Acute - Plan This is a 52-year-old female with a PMH of Anxiety, Depression, HTN, CAD and Hyperlipidemia who presented to ER with complaints of cough, SOB and chest pain for approx 1wk. Reports h/o CAD w/ stent placement in October 2017, on 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 On arrival, BP 156/92, HR 82, O2 sat 96% on RA, Afebrile. CBC unremarkable. D-dimer 0.82. Chemistry essentially unremarkable. Troponin negative. CXR with no acute findings. CTA Chest with no evidence of PE, mild patchy infiltrate right middle lobe characteristic of early pneumonia, mild atelectasis in occluded bronchus left lower lobe. Status post Levaquin, Solu-Medrol and DuoNeb in ER. Continues to complain of severe pain w/ cough and inspiration, requesting Dilaudid. PNA/failed out patient treatment - CXR w/ no acute findings, CTA Chest negative for PE, +infiltrate RMLl - failed out patient treatment on Z-pack and Augmentin since 03/12/18 for PNA, persistent infiltrates -Blood Culture negative so far, Influenza negative - continue w/ IV Levaquin - DuoNeb schedule and prn, prn cough -increase Solu-Medrol Chest pain/Back Pain/ Abdominal pain - Atypical, likely secondary to PNA w/ pleuritic component, reporting severe pain, requesting Dilaudid. -serial cardiac enzymes negative, BNP 18 -persistent complaints of generalized pain and back pain -lumbar x ray : no acute change -prn pain medication, monitor response CAD Hx of/s/p stent placement on October 2017 Serial troponin negative -continue metoprolol and Brilinta Hx Anxiety/depression -continue current medications DVT Prophylaxis: SCD/Teds Code Status: full code Discussed Condition With: patient, nurse and Dr Iniguez Discharge Planning: Plan to d/c in 1-2 days if respiratory status better an disf stable
[2018-03-19] MEDS ORDERED: Benzonatate 100 MG Capsule PO PRN (16:14)
[2018-03-19] MEDS: MethylPREDNISolone Sod Succinate Inj 125 MG/2 ML Vial IV.PUSH SCH ×2 (17:28→23:45)
[2018-03-19 19:45] VITALS: RESP 20; O2SAT 97
[2018-03-19] MEDS: Acetaminophen 325 MG Tablet PO PRN (20:24)
[2018-03-19] MEDS ORDERED: Montelukast 10 MG Tablet PO SCH (21:00)
[2018-03-20 00:56] VITALS: BP 122/73; PULSE 69; TEMP 98.3
[2018-03-20] MEDS: MethylPREDNISolone Sod Succinate Inj 125 MG/2 ML Vial IV.PUSH SCH (06:08)
[2018-03-20] MEDS: Metoprolol Tartrate 25 MG Tablet PO SCH (08:19)
[2018-03-20] MEDS: Lidocaine 5% Patch T-DERMAL SCH (08:19)
[2018-03-20] MEDS: guaiFENesin 600 MG ER Tablet PO SCH (08:19)
[2018-03-20] MEDS: Senna/Docusate Sodium 8.6/50 MG Tablet PO SCH (08:21)
[2018-03-20] MEDS: Budesonide-Formoterol 160/4.5 MCG 6 GM Inhaler INH SCH (08:23)
[2018-03-20] MEDS ORDERED: Loratadine 10 MG Tablet PO SCH (09:00)
--- NOTE | 2018-03-20 10:44 | P.DS ---
Date of admission: 03/17/18 22:01 Primary care physician: Jeff Price DO Attending physician on discharge: Bonilla Iniguez Anticipated date of discharge: 03/20/18 Brief History from admission: This is a 52-year-old female with a PMH of Anxiety, Depression, HTN, CAD and Hyperlipidemia who presented to ER with complaints of cough, SOB and chest pain for approx 1wk. Seen in ER on 03/12/18 for similar complaints, CXR w/ no acute findings, d/c'd on Z-pack and Augmentin, reports compliance w/ medications. Today, notes worsening cough and chest/back pain. Pain is severe, 10/10, worse w/ inspiration/cough, non-radiating. Reports h/o CAD w/ stent placement in October 2017, on [employer], works at and follows w/ [employer] there. On arrival, BP 156/92, HR 82, O2 sat 96% on RA, Afebrile. CBC unremarkable. D-dimer 0.82. Chemistry essentially unremarkable. Troponin negative. CXR with no acute findings. CTA Chest with no evidence of PE, mild patchy infiltrate right middle lobe characteristic of early pneumonia, mild atelectasis in occluded bronchus left lower lobe. S/p Levaquin, Solu-Medrol and DuoNeb in ER. Continues to complain of severe pain w/ cough and inspiration, requesting Dilaudid. Patient update on day of discharge: Patient awake and oriented x3, sitting in the bed, feeling better. Patient stated ready to go home. Patient requested for her cough medicine with codeine , discuss is not working for her she has been taking it since she was at home and she is not feeling better. Discussed she can only have this for a certain period of time. Discussed to use Tessalon Perles for coughing and to use inhaler at home. Patient states that she does not want to use inhaler and she has not been taking it anyway. Discussed the importance of using the inhaler to prevent recurrence of symptoms. Patient denies any headache or dizziness, denies any fever or chills, denies any chest pain, any pain or shortness of breath. Denies any diarrhea or constipation. Just had bowel movement today. DS: Diagnosis - Discharge Diagnosis (1) PNA (pneumonia) Status: Acute (2) Failure of outpatient treatment Status: Acute (3) Chest pain Status: Acute DS: Medications - Discharge Medications Prescriptions: benzonatate [Tessalon Perles] 200 mg PO Q8H PRN 10 Days #30 cap PRN Reason: Cough budesonide-formoterol [Symbicort] 2 puff INH BID 30 Days #1 unit montelukast 10 mg PO HS 30 Days #30 tab DS: Summary Hospital Course: This is a 52-year-old female with a PMH of Anxiety, Depression, HTN, CAD and Hyperlipidemia who presented to ER with complaints of cough, SOB and chest pain for approx 1wk. Seen in ER on 03/12/18 for similar complaints, CXR w/ no acute findings, d/c'd on Z-pack and Augmentin, reports compliance w/ medications. On arrival, BP 156/92, HR 82, O2 sat 96% on RA, Afebrile. CBC unremarkable. D- dimer 0.82. Chemistry essentially unremarkable. Troponin negative. CXR with no acute findings. CTA Chest with no evidence of PE, mild patchy infiltrate right middle lobe characteristic of early pneumonia, mild atelectasis in occluded bronchus left lower lobe. S/p IV Levaquin, Solu-Medrol and DuoNeb in ER. Treatment continued with IV let Levaquin and increase Solu-Medrol IV. On discharge day changed to PO antibiotic and Medrol dose pack. - Time Spent with Patient Total time spent providing and/or coordinating discharge services: Less than 30 minutes - Quality: VTE Deep Vein Thrombosis/Pulmonary Embolism Present on Admission: No Exam Vital signs: Vital Signs 03/19/18 11:37 03/19/18 12:00 03/19/18 15:03 Temperature 98.1 F Pulse Rate 72 68 69 Respiratory Rate 16 18 15 Blood Pressure 133/69 Pulse Oximetry 97 03/19/18 16:00 03/19/18 19:43 03/19/18 20:00 Temperature 98.3 F 98.4 F Pulse Rate 80 82 107 H Respiratory Rate 18 20 Blood Pressure 117/63 121/58 L Pulse Oximetry 98 97 03/20/18 00:00 03/20/18 08:00 Temperature 98.3 F Pulse Rate 69 Respiratory Rate 20 20 Blood Pressure 122/73 Pulse Oximetry 97 Intake & Output 03/19/18 03/20/18 03/20/18 18:59 06:59 18:59 Intake Total 720 / 720 150 / 150 Balance 720 / 720 150 / 150 Intake: IV 150 / 150 Levaquin 750 mg Premix Inj 150 150 / 150 ML @ 100 mls/hr IV.SIG Q24H [facility] Rx#:[id number] Oral 720 / 720 Other: # Voids 4 Date of Last Bowel Movement 03/19/18 03/19/18 03/19/18 Narrative: GENERAL: Well-developed, well-nourished, no apparent distress SKIN: Warm and dry. HEAD: Atraumatic. Normocephalic. EYES: Pupils equal and round. No scleral icterus. No injection or drainage. ENT: No nasal bleeding or discharge. Mucous membranes pink and moist. NECK: Trachea midline. No JVD. CARDIOVASCULAR: Regular rate and rhythm. RESPIRATORY: No accessory muscle use. Lung sounds clear in all lobes. Breath sounds equal bilaterally. Coughing with taking a deep breath. GASTROINTESTINAL: Abdomen soft, non-tender, nondistended. Hepatic and splenic margins not palpable. MUSCULOSKELETAL: Extremities without clubbing, cyanosis, or edema. No obvious deformities. NEUROLOGICAL: Awake and alert. No obvious cranial nerve deficits. Motor grossly within normal limits. Five out of 5 muscle strength in the arms and legs. Normal speech. PSYCHIATRIC: Appropriate mood and affect; insight and judgment normal. Results Procedures completed during hospitalization: none Labs on day of discharge: Preliminary micro results at discharge 03/17/18 22:00 Aerobic Blood Culture - Preliminary Blood - Peripheral No growth in 2 days Anaerobic Blood Culture - Preliminary No growth in 2 days 03/17/18 22:05 Aerobic Blood Culture - Preliminary Blood - Peripheral No growth in 2 days Anaerobic Blood Culture - Preliminary No growth in 2 days - Impressions ITS Impressions Chest X-Ray 03/17/18 17:58 CONCLUSION: No acute cardiopulmonary disease. There is no evidence of pneumonia. Chest CTA 03/17/18 20:31 CONCLUSION: 1. No evidence of pulmonary embolism. 2. Mild patchy infiltrate in the right middle lobe most characteristic of early pneumonia. 3. Coronary artery stent catheter noted. 4. Mild atelectasis in the occluded bronchus and the left lower lobe. Lumbar Spine X-Ray 03/18/18 00:00 CONCLUSION: No acute abnormality of the lumbar spine demonstrated. Surgical and degenerative changes as above. Discharge Plan - Discharge Disposition Patient Disposition: Discharge Home - Discharge Condition Condition: Stable - Discharge Order Discharge Orders: Discharge Order (Routine); Ordered 03/20/18 Ordered By: Sammi Ponce - Discharge Details Anticipated Discharge Date: 03/20/18 - Physicians Team Primary Care Provider: Jeff Price Attending Provider: Bonilla Iniguez
[2018-03-21] MEDS ORDERED: levoFLOXacin 750 MG Tablet PO SCH (09:00)
== END 2018-03-20 11:32 | disposition home or self-care (01) ==
LOC: NEPE 17:35 → NEDA 22:01 → N04 23:00
PROVIDERS: ADMIT Internal Medicine; ATTEND Internal Medicine

== ENCOUNTER 2018-06-01 23:10 | Inpatient (IN) ==
[2018-06-01] MEDS ORDERED: Sod Chloride 0.9% Inj 1,000 ML IV.SIG ONE (23:17)
--- NOTE | 2018-06-01 23:39 | ED ---
HPI General Chief Complaint: Cardiac Arrest/CPR Stated Complaint: Medical Time Seen by Provider: 06/01/18 23:17 Source: patient and EMS Mode of arrival: EMS Limitations: no limitations History of Present Illness HPI narrative: 52-year-old female presents to the emergency department by EMS transport after being reportedly found unresponsive without a pulse and without spontaneous respirations by in the bathroom after not seeing patient for approximately 20 minutes. Upon EMS arrival patient was found to be pulseless apneic and unresponsive and CPR was initiated. Patient was also identified to have pinpoint pupils and patient was immediately administered Narcan 2 mg IO and then was placed on toaster element repairer and paramedics noted her to be in V. tach with a pulse and then spontaneously converted to sinus rhythm and awakened. Patient has had stable blood pressure heart rate and respiration subsequently. Patient has had multiple episodes of vomiting but no report of aspiration. Patient reports that she had just gone to the bathroom to take her evening medications which includes a new prescription for hydrocodone and was planning on taking her Xanax and that the last thing she recalls until awakening in the ambulance. Patient denies using any substances and denies IV drug abuse. Patient is very upset that reportedly by the paramedics her said that she injected IV heroin patient adamantly denies this. Patient has known coronary vessel disease with previous non-ST elevation AR and stent placement 10/2017. Patient here denies any chest pain shortness of breath sweats abdominal pain. Patient denies any palpitations. Patient states he felt completely well prior to this episode. Patient has no shortness of breath. Patient is nauseated and has vomited several times. Insole Department Worker reports that patient did not receive any antiarrhythmic for her V. tach as she converted quickly back to sinus rhythm before they could administer any amiodarone. complaint: Reports found unresponsive Onset (ago): minute(s) Timing confirmed by: spouse Place: home Bystander CPR performed: No AED applied by bystander/dispensary technician: No Downtime before ACLS arrival (mins): 20 Initial findings in the field: unresponsive, no respirations, no pulse and VTACH /VFIB (once placed on monitor Vtach with pulse x 1 minute then converted to sinus) ROSC in the field: Yes Associated injuries: No Associated symptoms: Reports other (vomiting); Denies chest pain, abdominal pain , back pain, shortness of breath, headache, dizziness/weakness, sweating, palpitations and trauma Known history of: Reports CAD (stent 10/2017), AR (nstemi 10/2017) and drug abuse (per EMS per heroin injected heroin patient denies); Denies arrhythmia, PE, pacemaker, AICD and cancer Treatments prior to arrival: Reports BMV and chest compressions Related Data Home Medications Medication Instructions Recorded Confirmed atorvastatin 40 tab PO DAILY 01/12/18 06/01/18 escitalopram oxalate [Lexapro] 20 mg PO DAILY 03/12/18 06/01/18 estradiol 1 mg PO DAILY 03/12/18 06/01/18 lorazepam 0.5 mg PO DAILY PRN 03/12/18 06/01/18 metoprolol tartrate 25 mg PO BID 03/12/18 06/01/18 ticagrelor [Brilinta] 90 mg PO BID 03/12/18 06/01/18 alprazolam [Xanax] 0.5 mg PO BID 06/01/18 06/01/18 hydrocodone-acetaminophen 1 tab PO Q6H PRN 06/01/18 06/01/18 Previous Rx's Medication Instructions Recorded albuterol sulfate 1 inh INHALATION Q4-6H PRN #18 g 03/12/18 loratadine 10 mg PO DAILY tab 03/20/18 Allergies Allergy/AdvReac Type Severity Reaction Status Date / Time No Known Drug Allergies AdvReac Unknown Abdominal Verified 03/12/18 13:49 Pain *MDRO Multi-Drug Resistant AdvReac Unknown MRSA Uncoded 12/11/16 10:18 Organism Review of Systems ROS: all other systems reviewed are negative [facility] Medical History Medical History Anxiety (Acute) Depression (Acute) HTN (hypertension) (Acute) Heart attack (Acute) High cholesterol (Acute) Barretts esophagus (Chronic) Surgical History Surgical History H/O heart artery stent (Chronic) Social History Social History Substance History: No History of Abuse Second Hand Smoke Exposure: Yes Smoking Status: Current every day smoker Tobacco Type: Cigarettes How Often Do You Have a Drink Containing Alcohol: Monthly or less Recent Travel in [facility] within the Last 8 Weeks: No Recent Out of Country Travel within the Last 8 Weeks: No Immunization History Tetanus Immunization: Unsure Exam Narrative Exam Narrative: GENERAL: Well-developed well-nourished female in no acute distress no respiratory distress although actively vomiting. GCS is 15. Patient is in sinus rhythm by toaster element repairer. SKIN: Focused skin assessment warm/dry. HEAD: Atraumatic. Normocephalic. EYES: Pupils equal and round. No scleral icterus. No injection or drainage. ENT: No nasal bleeding or discharge. Mucous membranes pink and moist. NECK: Trachea midline. No JVD. CARDIOVASCULAR: Regular rate and rhythm. No murmur appreciated. RESPIRATORY: No accessory muscle use. Clear to auscultation. Breath sounds equal bilaterally. GASTROINTESTINAL: Abdomen soft, non-tender, nondistended. Hepatic and splenic margins not palpable. MUSCULOSKELETAL: No obvious deformities. No clubbing. No cyanosis. No edema. NEUROLOGICAL: Awake and alert. No obvious cranial nerve deficits. Motor grossly within normal limits. Normal speech. PSYCHIATRIC: Appropriate mood and affect; insight and judgment normal. Course Initial Documented Vital Signs Temperature 98.2 F 06/01/18 23:13 Pulse Rate 85 06/01/18 23:13 Respiratory Rate 14 06/01/18 23:13 Blood Pressure 129/112 H 06/01/18 23:13 Pulse Oximetry 100 06/01/18 23:13 Last Documented Vital Signs Temperature 98.2 F 06/01/18 23:13 Pulse Rate 85 06/01/18 23:13 Respiratory Rate 14 06/01/18 23:13 Blood Pressure 129/112 H 06/01/18 23:13 Pulse Oximetry 100 06/01/18 23:13 Medical Decision Making MDM Narrative Medical decision making narrative: 52-year-old female status post cardiac arrest with sap pp consultant CPR and monitored. Approximate 1 minute of ventricular tachycardia with a pulse that converted spontaneously to sinus rhythm after receiving Narcan 2 mg Patient placed on toaster element repairer with continuous pulse oximetry IV access obtained patient has IO access in the right lower extremity specimens collected and sent for resulting EKG performed which is normal sinus rhythm with right bundle branch block with no acute ST elevation injury pattern or ectopy. Patient administered zofran 4mg IV Medical Screen Exam Complete: Yes Emergency Medical Condition: Yes Differential Diagnosis Differential Diagnosis: Patient given Zosyn arrhythmia, electrolyte disturbance , adverse medication reaction, ACS, AR, electrolyte disturbance, PE, hypoxemia, opiate overdose Medical Records Medical records reviewed: Yes I reviewed the patient's medical records. Lab Data Lab results reviewed: Yes I reviewed the patient's lab results. Result diagrams: 06/01/18 23:35 ECG Data EKG Prior to Arrival: Yes (NSR w RBBB) Attestation: I personally reviewed and interpreted this ECG as follows: (EKG: Normal sinus rhythm rate 78 right bundle branch block no acute ST elevation injury pattern or ectopy noted) Discharge Plan Discharge Disposition Patient Disposition: ED Admit(ED Internal Use Only) Discharge Condition Condition: Stable Discharge Details Diagnosis: Cardiac arrest with successful resuscitation, Ventricular tachycardia Physicians Team ED Provider: Verenice Restrepo Rxs /Orders / Referrals /Forms Prescriptions: No Action atorvastatin 40 tab PO DAILY RF: 0 lorazepam 0.5 mg Tablet 0.5 mg PO DAILY PRN (Reason: Agitation) RF: 0 metoprolol tartrate 25 mg Tablet 25 mg PO BID RF: 0 estradiol 1 mg Tablet 1 mg PO DAILY RF: 0 escitalopram oxalate [Lexapro] 20 mg Tablet 20 mg PO DAILY RF: 0 ticagrelor [Brilinta] 90 mg Tablet 90 mg PO BID RF: 0 albuterol sulfate 90 mcg/actuation HFA aerosol inhaler 1 inh INHALATION Q4-6H PRN (Reason: shortness of breath or wheezing) Qty: 18 RF: 0 loratadine 10 mg Tablet 10 mg PO DAILY RF: 0 alprazolam [Xanax] 0.5 mg Tablet 0.5 mg PO BID RF: 0 hydrocodone-acetaminophen 7.5-325 mg Tablet 1 tab PO Q6H PRN (Reason: Pain) RF: 0 Status ED Status: With Doctor
[2018-06-01] MEDS ORDERED: Heparin - SQ 10,000 UNITS/ML Vial SQ SCH (23:45)
[2018-06-01] MEDS ORDERED: Sod Chloride 0.9% Inj 1,000 ML IV.CONT SCH (23:45)
[2018-06-01] MEDS ORDERED: Morphine Sulfate Inj 2 MG/ML Vial IV.PUSH PRN (23:56)
[2018-06-01] MEDS ORDERED: Acetaminophen 325 MG Tablet PO PRN (23:56)
[2018-06-01] MEDS ORDERED: Temazepam 15 MG Capsule PO PRN (23:56)
[2018-06-01] MEDS ORDERED: Bisacodyl 10 MG Supp RECTAL PRN (23:56)
[2018-06-02] MEDS ORDERED: LORazepam 0.5 MG Tablet PO PRN
[2018-06-02] MEDS ORDERED: Heparin - SQ 10,000 UNITS/ML Vial SQ SCH
--- NOTE | 2018-06-02 | P.HPCC ---
History of Present Illness History of Present Illness: 52-year-old female presents to the emergency department by EMS transport after being reportedly found unresponsive without a pulse and without spontaneous respirations by in the bathroom after not seeing patient for approximately 20 minutes. Upon EMS arrival patient was found to be pulseless apneic and unresponsive and CPR was initiated. Patient was also identified to have pinpoint pupils and patient was immediately administered Narcan 2 mg IO and then was placed on site monitor and paramedics noted her to be in V. tach with a pulse and then spontaneously converted to sinus rhythm and awakened. Patient has had stable blood pressure heart rate and respiration subsequently. Patient has had multiple episodes of vomiting but no report of aspiration. Patient reports that she had just gone to the bathroom to take her evening medications which includes a new prescription for hydrocodone and was planning on taking her Xanax and that the last thing she recalls until awakening in the ambulance. Patient denies using any substances and denies IV drug abuse. Patient is very upset that reportedly by the paramedics her said that she injected IV heroin patient adamantly denies this. Patient has known coronary vessel disease with previous non-ST elevation PA and stent placement 10/2017. Patient here denies any chest pain shortness of breath sweats abdominal pain. Patient denies any palpitations. Patient states she felt completely well prior to this episode. Patient has no shortness of breath. Patient is nauseated and has vomited several times. Glass Polisher reports that patient did not receive any antiarrhythmic for her V. tach as she converted quickly back to sinus rhythm before they could administer any amiodarone. Inpatient Certification: I certify that the inpatient services were ordered in accordance with Medicare regulations governing the order. This includes certification that hospital inpatient services are reasonable and necessary and in the case of services not specified as inpatient-only under 42 CFR 419.22(n), that they are appropriately provided as inpatient services in accordance to with the 2-midnight benchmark under 43 CFR 412.3(e) Estimated Total Length of Stay (Days): 5 Plans for Post Hospital Care: Not yet determined Review of Systems All other systems reviewed negative except as stated in HPI PMFSH - History History Provided By: Patient - Medical History Medical History: Medical History (Last Reviewed 06/01/18 @ 23:49 by Verenice Restrepo MD) Anxiety Depression HTN (hypertension) Heart attack High cholesterol Barretts esophagus - Surgical History Surgical History: Surgical History (Last Reviewed 06/01/18 @ 23:49 by Verenice Restrepo MD) H/O heart artery stent - Tobacco History Second Hand Smoke Exposure: Yes Tobacco Use In Past 30 Days: Yes Smoking Status: Current every day smoker Tobacco Type: Cigarettes - Alcohol History How Often Do You Have a Drink Containing Alcohol: Monthly or less - Substance Use History Substance History: No History of Abuse - Travel History Recent Travel in the [place] Within the Last 8 Weeks: No Recent Travel Out of the Country Within the Last 8 Weeks: No - Immunization History Tetanus Immunization: Unsure Medications and Allergies Active Medications: Current Medications Acetaminophen (Tylenol) 650 mg PO Q6H PRN PRN Reason: FEVER >101F Hydrocodone Bitart/Acetaminophen (Edward 7.5/325) 1 tab PO Q6H PRN PRN Reason: PAIN SCALE 1 TO 5 Al Hydroxide/Mg Hydroxide (Milk Of Magnesia Liq) 30 ml PO Q12H PRN PRN Reason: Mild Constipation Albuterol (Duoneb Neb (Prn)) 1 ampul NEB Q2HR NEB PRN PRN Reason: WHEEZING Alprazolam (Xanax) 0.5 mg PO BID [facility] Atorvastatin Calcium (Lipitor) 40 mg PO DAILY [facility] Bisacodyl (Dulcolax Supp) 10 mg RECTAL DAILY PRN PRN Reason: SEVERE CONSITIPATION Chlorhexidine Gluconate (Chlorhexidine 2% Cloth) 3 pack TOPICAL DAILY@0400 HERVE Stop: 06/07/18 03:59 Chlorhexidine Gluconate (Chlorhexidine 2% Cloth) 3 pack TOPICAL DAILY@0400 PRN PRN Reason: Extra cloth needed Stop: 06/07/18 03:59 Escitalopram Oxalate (Lexapro) 20 mg PO DAILY [facility] Estradiol (Estrace) 1 mg PO DAILY [facility] Famotidine (Pepcid Pf Inj) 20 mg IV.PUSH Q12HR [facility] Heparin Sodium (Porcine) (Heparin Inj) 5,000 units SQ Q8H [facility] Last Admin: 06/02/18 00:31 Dose: Not Given Sodium Chloride (Ns Inj) 1,000 mls @ 84 mls/hr IV.CONT .[id number] [facility] Lactulose (Lactulose Liq) 30 ml PO DAILY PRN PRN Reason: SEVERE CONSITIPATION Loratadine (Claritin) 10 mg PO DAILY [facility] Lorazepam (Ativan) 0.5 mg PO DAILY PRN PRN Reason: AGITATION Metoprolol Tartrate (Lopressor) 25 mg PO BID [facility] Morphine Sulfate (Morphine Inj) 2 mg IV.PUSH Q2H PRN PRN Reason: PAIN SCALE 6 TO 10 Ondansetron HCl (Zofran Inj) 4 mg IV.PUSH Q6H PRN PRN Reason: NAUSEA OR VOMITING Senna/Docusate Sodium (Constance-Colace) 1 tab PO BID [facility] Sennosides (Senokot) 17.2 mg PO Q12H PRN PRN Reason: Moderate Constipation Sodium Chloride (Ns Flush) 2 ml IV.FLUSH BID [facility] Sodium Chloride (Ns Flush) 2 ml IV.FLUSH PRN PRN PRN Reason: FLUSH AFTER USING IV ACCESS Temazepam (Restoril) 15 mg PO HS PRN PRN Reason: INSOMNIA Ticagrelor (Brilinta) 90 mg PO BID HERVE Allergies Allergy/AdvReac Type Severity Reaction Status Date / Time No Known Drug Allergies AdvReac Unknown Abdominal Verified 03/12/18 13:49 Pain *MDRO Multi-Drug Resistant AdvReac Unknown MRSA Uncoded 12/11/16 10:18 Organism Home Medications Medication Instructions Recorded Confirmed Type atorvastatin 40 tab PO DAILY 01/12/18 06/01/18 History escitalopram oxalate [Lexapro] 20 mg PO DAILY 03/12/18 06/01/18 History estradiol 1 mg PO DAILY 03/12/18 06/01/18 History lorazepam 0.5 mg PO DAILY PRN 03/12/18 06/01/18 History metoprolol tartrate 25 mg PO BID 03/12/18 06/01/18 History ticagrelor [Brilinta] 90 mg PO BID 03/12/18 06/01/18 History alprazolam [Xanax] 0.5 mg PO BID 06/01/18 06/01/18 History hydrocodone-acetaminophen 1 tab PO Q6H PRN 06/01/18 06/01/18 History Results - Labs CBC & Chem 7: 06/01/18 00:25 06/01/18 23:35 Exam Vital signs: Vital Signs 06/01/18 23:13 Temperature 98.2 F Pulse Rate 85 Respiratory Rate 14 Blood Pressure 129/112 H Pulse Oximetry 100 Intake & Output 06/01/18 06/01/18 06/02/18 06:59 18:59 06:59 Weight 61.235 kg - Constitutional no acute distress - Routine HEENT Exam Head: Present: normocephalic, atraumatic Eye: Present: EOMI, PERRL ENT: Present: mucous membranes moist - Routine Neck Exam Present: supple. Absent: full ROM, JVD - Routine Chest/Breast/Axilla Exam Chest wall: Absent: tenderness - Routine Respiratory Exam Absent: accessory muscle use, rales, respiratory distress, rhonchi - Routine Cardiovascular Exam Present: RRR, S1, S2 - Routine Abdominal Exam Present: soft, normoactive bowel sounds - Routine Extremities Exam Absent: cyanosis, clubbing, edema - Routine Skin Exam Present: intact. Absent: cyanosis, erythema - Routine Neurological Exam Present: alert, oriented X3, moving all extremities - Detailed Neurological Exam: Coma Scale Eye Opening: Spontaneous Verbal Response: Oriented Motor Response: Obey commands [place] Coma Scale Total: 15 Septic Shock Reassessment Septic shock perfusion: reassessment completed Caprini VTE Risk Assessment Caprini VTE Risk Assessment: Moderate/High Risk (score >= 2) Caprini Risk Assessment Model: Point Value = 1 Point Value = 2 Point Value = 3 Point Value = 5 Age 41-60 Minor surgery BMI > 25 kg/m2 Swollen legs Varicose veins or History of unexplained or recurrent spontaneous Oral contraceptives or hormone replacement Sepsis (< 1 month) Serious lung disease, including pneumonia (< 1 month) Abnormal pulmonary function Acute myocardial infarction Congestive heart failure (< 1 month) History of inflammatory bowel disease Medical patient at bed rest Age 61-74 Arthroscopic surgery Major open surgery (> 45 min) Laparoscopic surgery (> 45 min) Malignancy Confined to bed (> 72 hours) Immobilizing plaster cast Central venous access Age >= 75 History of VTE Family history of VTE Factor V Leiden Prothrombin [id number] Lupus anticoagulant Anticardiolipin antibodies Elevated serum homocysteine Heparin-induced thrombocytopenia Other congenital or acquired thrombophilia Stroke (< 1 month) Elective arthroplasty Hip, pelvis, or leg fracture Acute spinal cord injury (< 1 month) Prophylaxis Regimen: Total Risk Factor Score Risk Level Prophylaxis Regimen 0-1 Low Early ambulation 2 Moderate Order ONE of the following: *Sequential Compression Device (SCD) *Heparin 5000 units SQ BID 3-4 Higher Order ONE of the following medications: *Heparin 5000 units SQ TID *Enoxaparin/Lovenox 40 mg SQ daily (WT < 150 kg, CrCl > 30 mL/min) *Enoxaparin/Lovenox 30 mg SQ daily (WT < 150 kg, CrCl > 10-29 mL/min) *Enoxaparin/Lovenox 30 mg SQ BID (WT < 150 kg, CrCl > 30 mL/min) AND/OR *Sequential Compression Device (SCD) 5 or more Highest Order ONE of the following medications: *Heparin 5000 units SQ TID (Preferred with Epidurals) *Enoxaparin/Lovenox 40 mg SQ daily (WT < 150 kg, CrCl > 30 mL/min) *Enoxaparin/Lovenox 30 mg SQ daily (WT < 150 kg, CrCl > 10-29 mL/min) *Enoxaparin/Lovenox 30 mg SQ BID (WT < 150 kg, CrCl > 30 mL/min) AND *Sequential Compression Device (SCD) Assessment and Plan - Assessment and Plan Plan: Cardiac arrest -Unclear if cardiac versus respiratory first -Series of troponins and EKGs to rule out ACS -2D echo -ICU admission -Telemetry Coronary artery disease -Plan as above -Continue Brilinta -No chest pain or shortness of breath -Monitor -Cardiology consultation -Continue metoprolol Dyslipidemia -Atorvastatin Chronic pain syndrome - Hydrocodone Anxiety -Alprazolam -Escitalopram Oxalate DVT GI prophylaxis -Teds SCDs -Subcu heparin -Pepcid Level 2
--- NOTE | 2018-06-02 00:24 | XR ---
EXAM DATE: 06/02/2018 12:11 AM EST AGE/SEX: 52 years / Female INDICATIONS: Syncopal episode. CLINICAL DATA: This is the patient's initial encounter. Patient reports that signs and symptoms have been present for 1 day and indicates a pain score of 0/10. MEDICAL/SURGICAL HISTORY: Myocardial infarction. Fusion, lumbar. Coronary artery stent. COMPARISON: [facility] [place], CHEST 1V SINGLE AP, 03/17/2018. . FINDINGS: A single AP view of the chest demonstrates the lungs to be symmetrically aerated without evidence of mass, infiltrate or effusion. The cardiomediastinal contours are unremarkable. Osseous structures a re intact. CONCLUSION: No acute cardiopulmonary process. Electronically signed by: Tod Jenkins MD Board Certified Radiologist 06/02/2018 12:23 AM EST
[2018-06-02 00:37] LABS: Alanine Aminotransferase 25 U/L (10-53); Albumin 3.8 g/dL (3.4-5.0); Alkaline Phosphatase 52 U/L (45-117); Anion Gap 9 meq/L (5-15); Aspartate Aminotransferase 37 U/L (15-37); Blood Urea Nitrogen 21 mg/dL (7-18); Calcium 7.9 mg/dL (8.5-10.1); Carbon Dioxide 24.7 meq/L (21.0-32.0); Chloride 105 meq/L (98-107); Creatine Kinase 106 U/L (26-192); Glomerular Filtration Rate 57 mL/min (>89); Glucose,Random 207 mg/dL (74-106); Magnesium 1.8 mg/dL (1.5-2.5); Potassium 3.8 meq/L (3.5-5.1); Sodium 139 meq/L (136-145)
[2018-06-02 00:50] LABS: Creatine Kinase MB 1.6 ng/mL (0.5-3.6)
[2018-06-02 00:57] LABS: Baso % (Auto) 0.3 % (0.0-2.0); Eos # (Auto) 0.1 th/mm3 (0.0-0.4); Eos % (Auto) 0.9 % (0.0-4.0); Hematocrit 36.7 % (35.0-46.0); Hemoglobin 12.6 gm/dL (11.6-15.3); Lymph # (Auto) 2.1 th/mm3 (1.0-4.8); Lymph % (Auto) 27.1 % (9.0-44.0); Mean Corpuscular HGB Conc 34.3 % (32.0-36.0); Mean Corpuscular Hemoglobin 32.1 pg (27.0-34.0); Mean Corpuscular Volume 93.5 fL (80.0-100.0); Mean Platelet Volume 7.8 fL (7.0-11.0); Mono # (Auto) 0.3 th/mm3 (0.0-0.9); Mono % (Auto) 3.9 % (0.0-8.0); Neut # (Auto) 5.4 th/mm3 (1.8-7.7); Neut % (Auto) 67.8 % (16.0-70.0); Platelet Count 228 th/mm3 (150-450); Red Blood Count 3.92 mil/mm3 (4.00-5.30); Red Cell Distribution Width 14.3 % (11.6-17.2); White Blood Count 7.9 th/mm3 (4.0-11.0)
[2018-06-02] MEDS ORDERED: Chlorhexidine Gluconate 2% 1 Pack (2 Cloths) TOPICAL SCH (04:00)
[2018-06-02] MEDS ORDERED: Chlorhexidine Gluconate 2% 1 Pack (2 Cloths) TOPICAL PRN (04:00)
[2018-06-02] MEDS ORDERED: ALPRAZolam 0.5 MG Tablet PO SCH (09:00)
[2018-06-02] MEDS ORDERED: Loratadine 10 MG Tablet PO SCH (09:00)
[2018-06-02] MEDS ORDERED: Estradiol 1 MG Tablet PO SCH (09:00)
[2018-06-02] MEDS ORDERED: Metoprolol Tartrate 25 MG Tablet PO SCH (09:00)
[2018-06-02] MEDS ORDERED: Senna/Docusate Sodium 8.6/50 MG Tablet PO SCH (09:00)
[2018-06-02] MEDS ORDERED: Famotidine PF Inj 20 MG/2 ML Vial IV.PUSH SCH (09:00)
--- NOTE | 2018-06-02 11:59 | ECG ---
Date Performed: 06/01/2018 Time Performed: 23:20:17 PTAGE: 52 years EKG: Sinus rhythm RIGHT BUNDLE BRANCH BLOCK LEFT POSTERIOR FASCICULAR BLOCK Nonspecific T-wave changes ABNORMAL ECG PREVIOUS TRACING :03/17/2018 @19.49 Compared to previous tracing, axis has shifted rightward an d Right bundle branch block is now present. DOCTOR: Jason Guerra Interpretating Date/Time 06/02/2018 11:58:33
== END 2018-06-02 04:16 | disposition left against medical advice (07) ==
LOC: NEPE 23:10 → NEDA 06-02 00:09
PROVIDERS: ADMIT Internal Medicine Critical Care Medicine; ATTEND Internal Medicine Critical Care Medicine